=== PATIENT | female | born 1950 | race Caucasian/White ===

== ENCOUNTER 2016-03-29 23:21 | Emergency (ER) | payer OTHER ==
[~2016-03-29] VITALS: Ht 160 cm; Wt 68.0 kg
[~2016-03-29 23:21] MED LIST: HYDR-3580 PO; KETO10 PO; ULTR50TA PO
[2016-03-29 23:23] VITALS: BP 116/79; PULSE 70; RESP 16
[2016-03-29 23:24] VITALS: BP 168/79; PULSE 72; RESP 26; TEMP 98.2; O2SAT 99
[2016-03-29] MEDS ORDERED: COUGH SYRUP (23:28)
[2016-03-29 23:55] LABS: AUTOMATED NEUTROPHIL # 4.9 TH/MM3 (1.8-7.7); BASOPHIL # 0.1 TH/MM3 (0-0.2); BASOPHIL % 0.8 % (0.0-2.0); EOSINOPHIL # 0.5 TH/MM3 (0-0.4); EOSINOPHIL % 5.1 % (0.0-4.0); HEMO FLAGS DIFF FINAL; LYMPH % 32.9 % (9.0-44.0); LYMPHOCYTE # 3.2 TH/MM3 (1.0-4.8); MEAN CELL VOLUME 90.5 FL (80.0-100.0); MEAN CORPUSCULAR HEMOGLOBIN 30.2 PG (27.0-34.0); MEAN CORPUSCULAR HGB CONC 33.4 % (32.0-36.0); MONO % 10.8 % (0.0-8.0); NEUT % 50.4 % (16.0-70.0); PLATELET COUNT 187 TH/MM3 (150-450); RED BLOOD COUNT 4.08 MIL/MM3 (4.00-5.30); RED CELL DISTRIBUTION WIDTH 13.2 % (11.6-17.2); WHITE BLOOD COUNT 9.8 TH/MM3 (4.0-11.0)
--- NOTE | 2016-03-30 00:01 | RADRPT ---
EXAM DATE/TIME: 03/29/2016 23:35 [facility] COMPARISON: No previous studies available for comparison. INDICATIONS : Short of breath. MEDICAL HISTORY : None. SURGICAL HISTORY : Cholecystectomy. Spinal cord stimulator placed in 1995 ENCOUNTER: Initial ACUITY: 1 day PAIN SCORE: 10/10 LOCATION: Right lower chest area. FINDINGS: The cardiac silhouette is normal in transverse diameter. The lungs are free of acute parenchymal opac ity. No effusions are identified. Spinal stimulator is in place with its tip at the T8 level CONCLUSION: 1. No acute cardiopulmonary disease. Cj Peres MD on March 29, 2016 at 23:59 Board Certified Radiologist. This report was verified electronically.
[2016-03-30 00:09] LABS: BICARBONATE 26.7 MEQ/L (21.0-32.0); POTASSIUM 3.3 MEQ/L (3.5-5.1)
[2016-03-30 01:19] LABS: CREATINE KINASE 107 U/L (26-192)
[2016-03-30 01:32] LABS: CKMB 0.5 NG/ML (0.5-3.6)
[2016-03-30] MEDS ORDERED: SODIUM CHLORIDE 0.9% FLUSH 5 ML FLUSH IVF PRN (02:15)
[2016-03-30 02:32] VITALS: BP 141/67; PULSE 69; RESP 18; O2SAT 94
--- NOTE | 2016-03-30 02:38 | PD ---
HPI Chief Complaint: Respiratory Symptoms Time Seen by Provider: 01:56 Travel History International Travel<30 days: No Contact w/Intl Traveler<30days: No Traveled to known affect area: No History of Present Illness HPI This is a 65-year-old female who presents today with complaints of 1 week history of cough with pleuritic pain. The patient had fevers and upper respiratory symptoms earlier. She reports now the cough is productive with yellow green phlegm. There is no reported chills. She denies fever now. There are no other associated symptoms at this time. PENDING SALE TO [facility] Past Medical History Cardiovascular Problems: Yes Diminished Hearing: No Hypertension: Yes Influenza Vaccination: Yes Tubal Ligation: Yes Past Surgical History Appendectomy: Yes Hysterectomy: Yes Neurologic Surgery: Yes (back) Social History Alcohol Use: No Tobacco Use: Yes (02/13 PPD ) Substance Use: No Allergies-Medications (Allergen,Severity, Reaction): Coded Allergies: MRI PRECAUTION (Verified Allergy, Unknown, 03/29/16) Reported Meds & Prescriptions Reported Meds & Active Scripts Active Doxycycline Hyclate 100 Mg Cap 100 Mg PO BID Reported [Cough Syrup] Review of Systems Except as stated in HPI: all other systems reviewed are Neg General / Constitutional: Positive: Fever, No: Chills (earlier, none now) HENT: No: Headaches, Lightheadedness Cardiovascular: Positive: Chest Pain or Discomfort (right sided pleuritic with cough), No: Palpitations Respiratory: Positive: Cough (duct of yellow-green phlegm), No: Shortness of Breath Gastrointestinal: No: Nausea, Vomiting, Abdominal Pain Musculoskeletal: No: Myalgias, Pain Neurologic: No: Weakness, Dizziness Physical Exam Narrative GENERAL: Well-nourished, well-developed patient. SKIN: Warm and dry. HEAD: Normocephalic/atraumatic. EYES: No scleral icterus. No injection or drainage. NECK: Supple, trachea midline. CARDIOVASCULAR: Regular rate and rhythm without murmurs, gallops, or rubs. RESPIRATORY: Fine Rales heard at the right base. No rhonchi appreciated. Equal breath sounds bilaterally MUSCULOSKELETAL: No cyanosis, or edema. BACK: Nontender without obvious deformity. No CVA tenderness. NEUROLOGICAL: Awake and alert. Cranial nerves II through XII intact. Motor grossly within normal limits. Five out of 5 muscle strength in all muscle groups. Normal speech. Data Data Last Documented VS Vital Signs Date Time Temp Pulse Resp B/P Pulse Ox O2 Delivery O2 Flow Rate FiO2 03/30/16 02:32 69 18 141/67 94 Room Air 03/29/16 23:28 2 03/29/16 23:24 98.2 Orders Chest, Single Ap (03/29/16 ) Complete Blood Count With Diff (03/29/16 23:33) Basic Metabolic Panel (Bmp) (03/29/16 23:33) Influenzae A/B Antigen (03/29/16 23:33) D-Dimer (03/29/16 23:55) Ckmb (Isoenzyme) Profile (03/30/16 00:37) Troponin I (03/30/16 00:37) CKMB (03/29/16 23:36) CKMB% (03/29/16 23:36) Sodium Chloride 0.9% Flush (Ns Flush) (03/30/16 02:15) Albuterol Neb (Albuterol Neb) (03/30/16 02:15) Doxycycline (Vibramycin) (03/30/16 03:30) Labs Laboratory Tests Test 03/29/16 03/29/16 23:36 23:57 White Blood Count 9.8 TH/MM3 Red Blood Count 4.08 MIL/MM3 Hemoglobin 12.3 GM/DL Hematocrit 37.0 % Mean Corpuscular Volume 90.5 FL Mean Corpuscular Hemoglobin 30.2 PG Mean Corpuscular Hemoglobin 33.4 % Concent Red Cell Distribution Width 13.2 % Platelet Count 187 TH/MM3 Mean Platelet Volume 11.0 FL Neutrophils (%) (Auto) 50.4 % Lymphocytes (%) (Auto) 32.9 % Monocytes (%) (Auto) 10.8 % Eosinophils (%) (Auto) 5.1 % Basophils (%) (Auto) 0.8 % Neutrophils # (Auto) 4.9 TH/MM3 Lymphocytes # (Auto) 3.2 TH/MM3 Monocytes # (Auto) 1.1 TH/MM3 Eosinophils # (Auto) 0.5 TH/MM3 Basophils # (Auto) 0.1 TH/MM3 CBC Comment DIFF FINAL Differential Comment Sodium Level 142 MEQ/L Potassium Level 3.3 MEQ/L Chloride Level 109 MEQ/L Carbon Dioxide Level 26.7 MEQ/L Anion Gap 6 MEQ/L Blood Urea Nitrogen 10 MG/DL Creatinine 0.76 MG/DL Estimat Glomerular Filtration 77 ML/MIN Rate Random Glucose 112 MG/DL Calcium Level 8.2 MG/DL Total Creatine Kinase 107 U/L Creatine Kinase MB 0.5 NG/ML Troponin I LESS THAN 0.02 NG/ML D-Dimer Quantitative (PE/DVT) 0.37 MG/L [facility] Medical Decision Making Medical Screen Exam Complete: Yes Emergency Medical Condition: Yes Differential Diagnosis Bronchitis versus pneumonia versus pulmonary embolism Narrative Course 65-year-old female presents with complaints of cough with productive yellow phlegm green. The patient had fever earlier this week but is afebrile now. The patient's exam shows fine crackles at the right base. That is where she has pleuritic discomfort. Despite chest x-ray being read as negative I believe she very may well have early pneumonia. White blood cell count is within normal limits. D-dimer is negative. She's been given nebulizer treatment here in the emergency department. She's feels better. She does have cough syrup with codeine at home. I've instructed she can take the cough syrup up to every 4 hours but if she can stretch at 6-8 that is preferred. She's been given her first dose of doxycycline here in the emergency department. She is instructed to follow up with her primary care physician. She also instructed return if she does any worsening symptoms i.e. return if fever, worsening shortness of breath, or any other reason that concerned her. Diagnosis Primary Impression: Pneumonia Scripts Doxycycline Hyclate 100 Mg [id number] Mg PO BID #20 CAP Ref 0 Prov:Bin Webb MD 03/30/16 Disposition: 01 DISCHARGE HOME Condition: Stable Bin Webb MD Mar 30, 2016 02:38
[2016-03-30] MEDS: RESP: ALBUTEROL 2.5 MG/3 ML NEB (SCH) INH ×2 (03:01→03:02)
[2016-03-30] MEDS ORDERED: DOXYCYCLINE HYCLATE 100 MG CAP PO ONE (03:30)
[2016-03-30] MEDS ORDERED: DOXY100C PO (03:45)
== END 2016-03-30 04:13 | disposition home or self-care (01) ==
LOC: NEPE 23:21
DX: J18.9 Pneumonia, unspecified organism (principal); I10 Essential (primary) hypertension; F17.210 Nicotine dependence, cigarettes, uncomplicated
CPT/HCPCS: 71010; 80048; 82550; 82552; 84484; 85025; 85379; 87804; 94640; 94664; 99284; J7613

== ENCOUNTER 2016-06-05 09:38 | Emergency (ER) | payer OTHER ==
[~2016-06-05] VITALS: Ht 160 cm; Wt 63.5 kg
[~2016-06-05 09:38] MED LIST changes: +COUGH SYRUP; +DOXY100C PO; -HYDR-3580 PO; -KETO10 PO; -ULTR50TA PO
[2016-06-05 09:41] VITALS: BP 197/99; PULSE 71; RESP 18; TEMP 98; O2SAT 96
[2016-06-05] MEDS ORDERED: ASPI81CH CHEW (10:02)
[2016-06-05] MEDS ORDERED: ATEN25TA PO (10:02)
[2016-06-05 10:04] VITALS: BP 173/77; PULSE 64; RESP 16; O2SAT 97
--- NOTE | 2016-06-05 10:04 | PD ---
HPI Chief Complaint: Eye Problems/Injury Time Seen by Provider: 09:48 Travel History International Travel<30 days: No Contact w/Intl Traveler<30days: No Traveled to known affect area: No History of Present Illness HPI The patient is a 65-year-old female who presents to the emergency department for visual changes of the right eye. The patient states approximately 10 minutes prior to arrival she developed visual changes out of the right eye. The patient states she has difficulty seeing the right upper quadrant out of the right eye. She states that it feels like she is looking through a "kaleidoscope", feels like there is a silver current the right upper quadrant. The patient denies any pain out of the right eye, denies any known history of retinal detachment, glaucoma, or trauma to the right eye. The patient does have a history of hypertension, takes atenolol and a baby aspirin daily, but denies any history of CVA or TIA. The patient states her symptoms started 10 minutes prior to arrival, only affect the right eye, however, she is anxious secondary to her current symptoms. The patient does wear glasses. PFSH Past Medical History Cardiovascular Problems: Yes Diminished Hearing: No Hypertension: Yes Influenza Vaccination: Yes Tubal Ligation: Yes Past Surgical History Appendectomy: Yes Cholecystectomy: Yes (03/2015) Hysterectomy: Yes Neurologic Surgery: Yes (back) Social History Alcohol Use: No Tobacco Use: Yes (1/3 OF A PACK PER DAY) Substance Use: No Allergies-Medications (Allergen,Severity, Reaction): Coded Allergies: MRI PRECAUTION (Verified Allergy, Unknown, 06/05/16) Reported Meds & Prescriptions Reported Meds & Active Scripts Active Reported Aspirin 81 Mg Chew 81 Mg CHEW ONCE Atenolol 25 Mg Tab 25 Mg PO DAILY Review of Systems Except as stated in HPI: all other systems reviewed are Neg Eyes: Positive: Visual changes, No: Photophobia, Redness, Pain HENT: No: Headaches, Neck Pain Cardiovascular: No: Chest Pain or Discomfort Respiratory: No: Shortness of Breath Gastrointestinal: No: Nausea, Vomiting Neurologic: No: Focal Abnormalities, Headache, Paresthesia, Sensory Disturbance Physical Exam Narrative GENERAL: Awake, alert, pleasant 65-year-old female who appears her stated age and is in no acute respiratory distress. She is mildly anxious. SKIN: Focused skin assessment warm/dry. HEAD: Atraumatic. Normocephalic. EYES: Pupils equal and round. Pupils are 3 mm bilateral and reactive. EOMs are intact. Confrontational eye xavier on the left within normal limits. On the right appear to be diminished in the right temporal area, right upper quadrant. Snellen eye chart vision is 20/40 bilaterally. ENT: No nasal bleeding or discharge. Mucous membranes pink and moist. NECK: Trachea midline. No JVD. CARDIOVASCULAR: Regular rate and rhythm. No murmur appreciated. RESPIRATORY: No accessory muscle use. Clear to auscultation. Breath sounds equal bilaterally. GASTROINTESTINAL: Abdomen soft, non-tender, nondistended. MUSCULOSKELETAL: No obvious deformities. No clubbing. No cyanosis. No edema. NEUROLOGICAL: Awake and alert. No obvious cranial nerve deficits. Motor grossly within normal limits. Normal speech. Nonfocal. Oriented 4. No drift of the upper or lower extremities. Sensation is symmetric on the arms, face, and legs bilaterally. PSYCHIATRIC: Appropriate mood and affect; insight and judgment normal. Data Data Last Documented VS Vital Signs Date Time Temp Pulse Resp B/P Pulse Ox O2 Delivery O2 Flow Rate FiO2 06/05/16 10:04 64 16 173/77 97 Room Air 06/05/16 09:41 98.0 Orders Complete Blood Count With Diff (06/05/16 10:00) Basic Metabolic Panel (Bmp) (06/05/16 10:00) Act Partial Throm Time (Ptt) (06/05/16 10:00) Prothrombin Time / Inr (Pt) (06/05/16 10:00) Ct Brain W/O Iv Contrast(Rout) (06/05/16 ) Enalaprilat Inj (Vasotec Inj) (06/05/16 10:15) Labs Laboratory Tests Test 06/05/16 10:08 White Blood Count 9.5 TH/MM3 Red Blood Count 4.90 MIL/MM3 Hemoglobin 14.4 GM/DL Hematocrit 44.4 % Mean Corpuscular Volume 90.8 FL Mean Corpuscular Hemoglobin 29.4 PG Mean Corpuscular Hemoglobin 32.3 % Concent Red Cell Distribution Width 13.5 % Platelet Count 242 TH/MM3 Mean Platelet Volume 10.7 FL Neutrophils (%) (Auto) 62.7 % Lymphocytes (%) (Auto) 28.2 % Monocytes (%) (Auto) 6.0 % Eosinophils (%) (Auto) 1.9 % Basophils (%) (Auto) 1.2 % Neutrophils # (Auto) 6.0 TH/MM3 Lymphocytes # (Auto) 2.7 TH/MM3 Monocytes # (Auto) 0.6 TH/MM3 Eosinophils # (Auto) 0.2 TH/MM3 Basophils # (Auto) 0.1 TH/MM3 CBC Comment DIFF FINAL Differential Comment Prothrombin Time 10.6 SEC Prothromb Time International 1.0 RATIO Ratio Activated Partial 27.5 SEC Thromboplast Time Sodium Level 140 MEQ/L Potassium Level 3.6 MEQ/L Chloride Level 106 MEQ/L Carbon Dioxide Level 26.2 MEQ/L Anion Gap 8 MEQ/L Blood Urea Nitrogen 12 MG/DL Creatinine 1.14 MG/DL Estimat Glomerular Filtration 48 ML/MIN Rate Random Glucose 122 MG/DL Calcium Level 9.6 MG/DL [facility] Medical Decision Making Medical Screen Exam Complete: Yes Emergency Medical Condition: Yes Medical Record Reviewed: Yes Interpretation(s) Laboratory Tests Test 06/05/16 10:08 White Blood Count 9.5 TH/MM3 Red Blood Count 4.90 MIL/MM3 Hemoglobin 14.4 GM/DL Hematocrit 44.4 % Mean Corpuscular Volume 90.8 FL Mean Corpuscular Hemoglobin 29.4 PG Mean Corpuscular Hemoglobin 32.3 % Concent Red Cell Distribution Width 13.5 % Platelet Count 242 TH/MM3 Mean Platelet Volume 10.7 FL Neutrophils (%) (Auto) 62.7 % Lymphocytes (%) (Auto) 28.2 % Monocytes (%) (Auto) 6.0 % Eosinophils (%) (Auto) 1.9 % Basophils (%) (Auto) 1.2 % Neutrophils # (Auto) 6.0 TH/MM3 Lymphocytes # (Auto) 2.7 TH/MM3 Monocytes # (Auto) 0.6 TH/MM3 Eosinophils # (Auto) 0.2 TH/MM3 Basophils # (Auto) 0.1 TH/MM3 CBC Comment DIFF FINAL Differential Comment Prothrombin Time 10.6 SEC Prothromb Time International 1.0 RATIO Ratio Activated Partial 27.5 SEC Thromboplast Time Sodium Level 140 MEQ/L Potassium Level 3.6 MEQ/L Chloride Level 106 MEQ/L Carbon Dioxide Level 26.2 MEQ/L Anion Gap 8 MEQ/L Blood Urea Nitrogen 12 MG/DL Creatinine 1.14 MG/DL Estimat Glomerular Filtration 48 ML/MIN Rate Random Glucose 122 MG/DL Calcium Level 9.6 MG/DL Last Impressions Head CT 06/05/16 0000 Signed Impressions: Service Date/Time: Sunday, June 05, 2016 10:33 - CONCLUSION: Unremarkable noncontrast CT. Black Bo MD Differential Diagnosis Differential diagnosis includes retinal detachment, floaters, ran artery occlusion, retinal vein occlusion, amaurosis fugax, ocular migraine. Narrative Course IV was established, labs are drawn and sent, and the patient was placed on cardiac telemetry monitoring and continuous pulse oximetry monitoring. Still an eye chart was performed, patient's vision bilateral 20/40, however, she appears to have diminished right upper quadrant visual xavier on confrontational exam. Patient may have artery/vein occlusion versus retinal detachment. Less likely would be amaurosis. CT of the brain was obtained. CT the brain was negative. Laboratory evaluation reveals mildly elevated creatinine 1.14, otherwise unremarkable. The patient was reevaluated at 10:56 AM. The patient states her symptoms have resolved. I discussed the patient with the cath lab nurse, Dr. Price, who will see her in the office today after 3 PM. The patient is comfortable with this plan of care and disposition. Diagnosis Primary Impression: Transient visual loss of right eye Referrals: Winifred Price MD 1 day Follow-up with Dr. Price in the office today at 3 PM Additional Instructions: Follow-up with Dr. Price in the office today at 3 PM. Return if symptoms worsen or progress. Med/Other Pt SpecificInfo: No Change to Meds Disposition: 01 DISCHARGE HOME Condition: Stable Miguel Fraire MD Jun 05, 2016 10:04
[2016-06-05] MEDS ORDERED: ENALAPRILAT 2.5 MG/2 ML VIAL IV PUSH ONE (10:15)
[2016-06-05 10:21] LABS: BASOPHIL # 0.1 TH/MM3 (0-0.2); BASOPHIL % 1.2 % (0.0-2.0); EOSINOPHIL # 0.2 TH/MM3 (0-0.4); EOSINOPHIL % 1.9 % (0.0-4.0); HEMATOCRIT 44.4 % (35.0-46.0); HEMO FLAGS DIFF FINAL; LYMPH % 28.2 % (9.0-44.0); LYMPHOCYTE # 2.7 TH/MM3 (1.0-4.8); MEAN CELL VOLUME 90.8 FL (80.0-100.0); MEAN CORPUSCULAR HEMOGLOBIN 29.4 PG (27.0-34.0); MEAN CORPUSCULAR HGB CONC 32.3 % (32.0-36.0); NEUT % 62.7 % (16.0-70.0); PLATELET COUNT 242 TH/MM3 (150-450); RED CELL DISTRIBUTION WIDTH 13.5 % (11.6-17.2); WHITE BLOOD COUNT 9.5 TH/MM3 (4.0-11.0)
[2016-06-05 10:32] LABS: APTT (PATIENT) 27.5 SEC (24.3-30.1); PROTHROMBIN TIME - PATIENT 10.6 SEC (9.8-11.6)
[2016-06-05 10:35] LABS: BICARBONATE 26.2 MEQ/L (21.0-32.0)
--- NOTE | 2016-06-05 10:46 | RADRPT ---
EXAM DATE/TIME: 06/05/2016 10:33 [facility] COMPARISON: No previous studies available for comparison. INDICATIONS : Visual disturbance right eye upon standing RADIATION DOSE: 39.21 CTDIvol (mGy) MEDICAL HISTORY : Hypertension. Cardiovascular disease SURGICAL HISTORY : Cholecystectomy. Hysterectomy. Appendectomy. ENCOUNTER: Initial ACUITY: 1 day PAIN SCALE: 0/10 LOCATION: cranial TECHNIQUE: Multiple contiguous axial images were obtained of the head. Using automated exposure control and adj ustment of the mA and/or kV according to patient size, radiation dose was kept as low as reasonably a chievable to obtain optimal diagnostic quality images. FINDINGS: CEREBRUM: The ventricles are normal for age. No evidence of midline shift, mass lesion, hemorrhage or acute in farction. No extra-axial fluid collections are seen. POSTERIOR FOSSA: The cerebellum and brainstem are intact. The 4th ventricle is midline. The cerebellopontine angle i s unremarkable. EXTRACRANIAL: The visualized portion of the orbits is intact. SKULL: The calvaria is intact. No evidence of skull fracture. CONCLUSION: Unremarkable noncontrast CT. Black Bo MD on June 05, 2016 at 10:43 Board Certified Radiologist. This report was verified electronically.
[2016-06-05 10:54] LABS: POTASSIUM 3.6 MEQ/L (3.5-5.1)
== END 2016-06-05 11:42 | disposition home or self-care (01) ==
LOC: NEPC 09:38
DX: H53.121 Transient visual loss, right eye (principal); I10 Essential (primary) hypertension
CPT/HCPCS: 70450; 80048; 85025; 85610; 85730

== ENCOUNTER 2017-02-05 09:22 | Emergency (ER) | payer OTHER ==
[~2017-02-05] VITALS: Ht 160 cm; Wt 73.0 kg
[~2017-02-05 09:22] MED LIST changes: +ASPI-516 CHEW; +ATEN25TA PO; -COUGH SYRUP; -DOXY100C PO
[2017-02-05 09:24] VITALS: BP 228/125; PULSE 72; RESP 14
[2017-02-05 09:43] VITALS: BP 209/86; PULSE 62; RESP 16; TEMP 98; O2SAT 98
[2017-02-05] MEDS ORDERED: KETOROLAC TROMETHAMINE 30 MG/ML (IVP) VIAL IV PUSH ONE (09:45)
[2017-02-05] MEDS ORDERED: DIAZEPAM 5 MG TAB PO ONE (09:45)
[2017-02-05 10:01] LABS: AUTOMATED NEUTROPHIL # 6.8 TH/MM3 (1.8-7.7); BASOPHIL % 0.4 % (0.0-2.0); EOSINOPHIL # 1.1 TH/MM3 (0-0.4); EOSINOPHIL % 9.7 % (0.0-4.0); HEMATOCRIT 40.4 % (35.0-46.0); HEMOGLOBIN 13.9 GM/DL (11.6-15.3); LYMPH % 26.2 % (9.0-44.0); LYMPHOCYTE # 3.1 TH/MM3 (1.0-4.8); MEAN CELL VOLUME 91.5 FL (80.0-100.0); MEAN CORPUSCULAR HEMOGLOBIN 31.4 PG (27.0-34.0); MEAN CORPUSCULAR HGB CONC 34.3 % (32.0-36.0); MEAN PLATELET VOLUME 10.8 FL (7.0-11.0); MONO % 6.4 % (0.0-8.0); MONOCYTE # 0.8 TH/MM3 (0-0.9); NEUT % 57.3 % (16.0-70.0); PLATELET COUNT 274 TH/MM3 (150-450); RED BLOOD COUNT 4.42 MIL/MM3 (4.00-5.30); WHITE BLOOD COUNT 11.8 TH/MM3 (4.0-11.0)
[2017-02-05 10:15] LABS: ALT (GPT) 24 U/L (10-53); AST (GOT) 15 U/L (15-37); BICARBONATE 25.3 MEQ/L (21.0-32.0); BLOOD UREA NITROGEN 19 MG/DL (7-18); CALCIUM 9.1 MG/DL (8.5-10.1); CHLORIDE 107 MEQ/L (98-107); CREATININE 1.02 MG/DL (0.50-1.00); GLOMERULAR FILTRATION RATE 55 ML/MIN (>89); GLUCOSE,RANDOM 115 MG/DL (74-106); SODIUM (NA) 139 MEQ/L (136-145)
--- NOTE | 2017-02-05 10:17 | RADRPT ---
EXAM DATE/TIME: 02/05/2017 10:05 [facility] COMPARISON: CHEST SINGLE AP, March 29, 2016, 23:35. INDICATIONS : Chest pain and shortness of breath. MEDICAL HISTORY : None. SURGICAL HISTORY : Cholecystectomy. Spinal cord stimulator placed in 1995 ENCOUNTER: Initial ACUITY: 3 days PAIN SCORE: 7/10 LOCATION: Bilateral chest FINDINGS: A single view of the chest demonstrates the lungs to be symmetrically aerated without evidence of mas s, infiltrate or effusion. The cardiomediastinal contours are unremarkable. Spinal stimulator [employer] us structures are intact. CONCLUSION: Spinal stimulator otherwise negative. Grant Sal MD FACR on February 05, 2017 at 10:14 Board Certified Radiologist. This report was verified electronically.
[2017-02-05 10:18] LABS: ALKALINE PHOSPHATASE 68 U/L (45-117); TOTAL BILIRUBIN ADULT 0.3 MG/DL (0.2-1.0); TOTAL PROTEIN 7.7 GM/DL (6.4-8.2); TROPONIN I LESS THAN 0.02 NG/ML (0.02-0.05)
[2017-02-05] MEDS ORDERED: CYCLOBENZAPRINE HCL 10 MG TAB PO ONE (11:00)
[2017-02-05 11:04] VITALS: BP 158/73; PULSE 56; RESP 17; O2SAT 98
[2017-02-05 11:16] VITALS: RESP 17
[2017-02-05] MEDS ORDERED: CYCL10TA PO (11:22)
--- NOTE | 2017-02-05 11:22 | PD ---
HPI Chief Complaint: Chest Pain Time Seen by Provider: 09:27 Travel History International Travel<30 days: No Contact w/Intl Traveler<30days: No Traveled to known affect area: No History of Present Illness HPI Patient is a 66-year-old female who comes in complaining of right shoulder pain and pain that goes down her right arm. She just been having the pain for the past 3 days, but today it got worse while she was here at work, cleaning. She denies having any chest pain. She says that she has a chronic issue with palpitations and shortness of breath, this has not changed. She follows with her doctor, Dr. Chen for this. She denies fever or chills. She denies any injuries. She has been taking Aleve for her symptoms, but it is not helping. [facility] Past Medical History Cardiovascular Problems: Yes Diabetes: Yes (Diet Controlled ) Patient Takes Glucophage: No Diminished Hearing: No Hypertension: Yes ?: Not Ovarian Cysts: Yes Tubal Ligation: Yes Past Surgical History Appendectomy: Yes Cholecystectomy: Yes (03/2015) Gynecologic Surgery: Yes (TUBELECTOMY) Hysterectomy: Yes Neurologic Surgery: Yes (back) Other Surgery: Yes (BACK SURGERY) Social History Alcohol Use: No Tobacco Use: Yes (1/3 OF A PACK PER DAY) Substance Use: No Allergies-Medications (Allergen,Severity, Reaction): Coded Allergies: MRI PRECAUTION (Verified Allergy, Unknown, 02/05/17) Reported Meds & Prescriptions Reported Meds & Active Scripts Active Flexeril (Cyclobenzaprine HCl) 10 Mg Tab 10 Mg PO TID Reported Aspirin 81 Mg Chew 81 Mg CHEW ONCE Atenolol 25 Mg Tab 25 Mg PO DAILY Review of Systems Except as stated in HPI: all other systems reviewed are Neg General / Constitutional: No: Fever, Chills HENT: No: Headaches Cardiovascular: No: Chest Pain or Discomfort Respiratory: No: Cough Gastrointestinal: No: Nausea, Vomiting Genitourinary: No: Dysuria Musculoskeletal: Positive: Myalgias, Pain Skin: No Rash Neurologic: No: Weakness, Dizziness Physical Exam Narrative GENERAL: Awake and alert, in no acute distress. SKIN: Focused skin assessment warm/dry. HEAD: Atraumatic. Normocephalic. EYES: Pupils equal and round. No scleral icterus. EOMI. ENT: Mucous membranes pink and moist. NECK: Trachea midline. No JVD. Tender to palpation of the right trapezius muscle. CARDIOVASCULAR: Regular rate and rhythm. No murmur appreciated. RESPIRATORY: No accessory muscle use. Clear to auscultation. Breath sounds equal bilaterally. MUSCULOSKELETAL: No obvious deformities. No clubbing. No cyanosis. No edema. NEUROLOGICAL: Awake and alert. No obvious cranial nerve deficits. Motor grossly within normal limits. Normal speech. PSYCHIATRIC: Appropriate mood and affect; insight and judgment normal. Data Data Last Documented VS Vital Signs Date Time Temp Pulse Resp B/P (MAP) Pulse Ox O2 Delivery O2 Flow Rate FiO2 02/05/17 12:17 02/05/17 11:16 17 02/05/17 11:04 56 98 Room Air 02/05/17 09:43 98.0 Orders Orders Iv Access Insert/Monitor (02/05/17 09:33) Complete Blood Count With Diff (02/05/17 09:33) Comprehensive Metabolic Panel (02/05/17 09:33) Troponin I (02/05/17 09:33) Chest, Single Ap (02/05/17 ) Diazepam (Valium) (02/05/17 09:45) Ketorolac Inj (Toradol Inj) (02/05/17 09:45) Cyclobenzaprine (Flexeril) (02/05/17 11:00) Ed Discharge Order (02/05/17 11:22) Electrocardiogram (02/05/17 09:26) Labs Laboratory Tests Test 02/05/17 09:30 White Blood Count 11.8 TH/MM3 Red Blood Count 4.42 MIL/MM3 Hemoglobin 13.9 GM/DL Hematocrit 40.4 % Mean Corpuscular Volume 91.5 FL Mean Corpuscular Hemoglobin 31.4 PG Mean Corpuscular Hemoglobin Concent 34.3 % Red Cell Distribution Width 13.0 % Platelet Count 274 TH/MM3 Mean Platelet Volume 10.8 FL Neutrophils (%) (Auto) 57.3 % Lymphocytes (%) (Auto) 26.2 % Monocytes (%) (Auto) 6.4 % Eosinophils (%) (Auto) 9.7 % Basophils (%) (Auto) 0.4 % Neutrophils # (Auto) 6.8 TH/MM3 Lymphocytes # (Auto) 3.1 TH/MM3 Monocytes # (Auto) 0.8 TH/MM3 Eosinophils # (Auto) 1.1 TH/MM3 Basophils # (Auto) 0.0 TH/MM3 CBC Comment DIFF FINAL Differential Comment Blood Urea Nitrogen 19 MG/DL Creatinine 1.02 MG/DL Random Glucose 115 MG/DL Total Protein 7.7 GM/DL Albumin 4.0 GM/DL Calcium Level 9.1 MG/DL Alkaline Phosphatase 68 U/L Aspartate Amino Transf (AST/SGOT) 15 U/L Alanine Aminotransferase (ALT/SGPT) 24 U/L Total Bilirubin 0.3 MG/DL Sodium Level 139 MEQ/L Potassium Level 4.0 MEQ/L Chloride Level 107 MEQ/L Carbon Dioxide Level 25.3 MEQ/L Anion Gap 7 MEQ/L Estimat Glomerular Filtration Rate 55 ML/MIN Troponin I LESS THAN 0.02 NG/ML MDM Medical Decision Making Medical Screen Exam Complete: Yes Emergency Medical Condition: Yes Medical Record Reviewed: Yes Interpretation(s) ECG shows NSR at 71, no ST elevation or depression Differential Diagnosis muscle spasm vs nerve impingement vs sprain Narrative Course Patient is a 66 year old female who comes in complaining of right shoulder pain. Exam shows tenderness to the right trapezius muscle. IV established, labs sent. Labs show no acute abnormalities. CXR performed shows no acute abnormalities. Given Diazepam and Toradol with improvement of her symptoms. She says her pain is still a 5/10, but more tolerable. Given Flexeril. Offered admission to chest pain center, but this is likely a musculoskeletal pain to her right shoulder, and she never truly had chest pain. She would prefer to go home. Given a prescription for Flexeril. She will follow up with her doctor, Dr. Chen tomorrow. Advised to return at any time for any worsening symptoms. Diagnosis Primary Impression: Muscle spasm Patient Instructions: General Instructions, Muscle Spasm (ED) Additional Instructions: Follow up with your doctor. Take pain medicine as needed. Return to the ED as needed for any worsening symptoms. Scripts Cyclobenzaprine (Flexeril) 10 Mg Tab 10 MG PO TID for Muscle Spasm, #15 TAB 0 Refills Prov: Robyn Heard MD 02/05/17 Disposition: 01 DISCHARGE HOME Condition: Stable Robyn Heard MD Feb 05, 2017 11:22
--- NOTE | 2017-02-06 17:42 | EKG ---
Date Performed: 02/05/2017 Time Performed: 09:26:18 PTAGE: 66 years EKG: Sinus rhythm MODERATE ST DEPRESSION Since previous tracing, no significant change noted ABNORMAL ECG PREVIOUS TRACING : 04/02/2015 13.53.57 DOCTOR: Rosa Joseph Interpretating Date/Time 02/06/2017 17:40:04
== END 2017-02-05 12:18 | disposition home or self-care (01) ==
LOC: NEPE 09:22
DX: M62.838 Other muscle spasm (principal); E11.9 Type 2 diabetes mellitus without complications; I10 Essential (primary) hypertension; N83.209 Unspecified ovarian cyst, unspecified side; R94.31 Abnormal electrocardiogram [ECG] [EKG]; F17.200 Nicotine dependence, unspecified, uncomplicated
CPT/HCPCS: 71010; 80053; 84484; 85025; 93005; 96374; 99285; J1885

== ENCOUNTER 2017-02-12 11:30 | Emergency (ER) | payer OTHER ==
[~2017-02-12] VITALS: Ht 160 cm; Wt 75.0 kg
[~2017-02-12 11:30] MED LIST changes: +CYCL10TA PO
[2017-02-12 11:35] VITALS: BP 198/90; PULSE 71; RESP 17; O2SAT 96
[2017-02-12 11:49] VITALS: TEMP 97.9
--- NOTE | 2017-02-12 12:11 | PD ---
HPI Chief Complaint: Musculoskeletal Complaint Time Seen by Provider: 11:35 Travel History International Travel<30 days: No Contact w/Intl Traveler<30days: No Traveled to known affect area: No History of Present Illness HPI 66 year old female presents to the emergency department for evaluation of right arm pain. Patient was evaluated at our facility on February 05 for the same complaint. A cardiac workup was performed and everything was negative. Patient was discharged home with Flexeril. Patient called her PCP, Dr. Chen and got an appointment for February 20. Patient was working today when the pain was shooting down her right arm from her right trapezius making it difficult for her to perform her job. The pain starts at the right lateral aspect of her neck and right trapezius and radiates down her right arm and a sharp shooting fashion. The patient rates the pain at a 4 out of 10 chronically but increases to an 8 out of 10 when the sharp shooting sensation occurs. Patient has full range of motion of bilateral upper extremities. Equal inspector tester sorter strengths. Patient has history of diabetes and has diabetic neuropathy in bilateral feet. He denies any fever, chills, malaise, chest pain, shortness breath, nausea, vomiting, diarrhea, abdominal pain, lightheadedness. Patient smokes half pack cigarettes a day. PFSH Past Medical History Cardiovascular Problems: Yes Chest Pain: No (fluttering at times with SOB) Diabetes: Yes (Diet Controlled ) Patient Takes Glucophage: No Diminished Hearing: No GERD: Yes Hypertension: Yes Musculoskeletal: Yes (many back surgeries; has an implanted tens unit) Ovarian Cysts: Yes Tubal Ligation: Yes Past Surgical History Appendectomy: Yes Cholecystectomy: Yes (03/2015) Gynecologic Surgery: Yes (TUBELECTOMY) Hysterectomy: Yes Neurologic Surgery: Yes (back) Other Surgery: Yes (BACK SURGERY) Social History Alcohol Use: No Tobacco Use: Yes (1/3 OF A PACK PER DAY) Substance Use: No Allergies-Medications (Allergen,Severity, Reaction): Coded Allergies: MRI PRECAUTION (Verified Allergy, Unknown, 02/12/17) Reported Meds & Prescriptions Reported Meds & Active Scripts Active Tramadol (Tramadol HCl) 50 Mg Tab 50 Mg PO Q6H PRN Robaxin (Methocarbamol) 500 Mg Tab 500 Mg PO TID PRN Prednisone (48) 10 mg tab Dose Pack (Prednisone) 10 Mg Dspk 10 Mg PO DIRECTED Flexeril (Cyclobenzaprine HCl) 10 Mg Tab 10 Mg PO TID Reported Aspirin 81 Mg Chew 81 Mg CHEW ONCE Atenolol 25 Mg Tab 25 Mg PO DAILY Review of Systems Except as stated in HPI: all other systems reviewed are Neg Physical Exam Narrative GENERAL: Well-nourished, well-developed 66-year-old female in no acute distress. Nontoxic appearing. SKIN: Focused skin assessment warm/dry. HEAD: Atraumatic. Normocephalic. EYES: Pupils equal and round. No scleral icterus. No injection or drainage. ENT: No nasal bleeding or discharge. Mucous membranes pink and moist. NECK: Trachea midline. No JVD. CARDIOVASCULAR: Regular rate and rhythm. No murmur appreciated. Radial pulses +2 bilaterally. RESPIRATORY: No accessory muscle use. Clear to auscultation. Breath sounds equal bilaterally. GASTROINTESTINAL: Abdomen soft, non-tender, nondistended. Hepatic and splenic margins not palpable. MUSCULOSKELETAL: Full range of motion bilateral upper extremities. No obvious deformities. No clubbing. No cyanosis. No edema. NEUROLOGICAL: Awake and alert. No obvious cranial nerve deficits. Motor grossly within normal limits. Normal speech. PSYCHIATRIC: Appropriate mood and affect; insight and judgment normal. Data Data Last Documented VS Vital Signs Date Time Temp Pulse Resp B/P (MAP) Pulse Ox O2 Delivery O2 Flow Rate FiO2 02/12/17 15:40 02/12/17 15:39 78 02/12/17 11:49 97.9 02/12/17 11:[address] Cerv Spine W/O Contrast (02/12/17 11:47) Electrocardiogram (02/12/17 11:52) Ketorolac Inj (Toradol Inj) (02/12/17 13:15) Orphenadrine Sr (Norflex Cr) (02/12/17 13:15) Ed Discharge Order (02/12/17 15:13) MDM Medical Decision Making Medical Screen Exam Complete: Yes Emergency Medical Condition: Yes Differential Diagnosis Differential diagnoses include but not limited to cervical radiculopathy, muscular strain, nerve impingement, herniated cervical disc Narrative Course EKG ordered and interpreted. EKG shows sinus rhythm with heart rate 72, moderate ST depression. Similar to the EKG tracing performed on February 05. Cervical CT ordered due to pt's inability to receive an MRI. 30mg Toradol IV and 100mg Norflex PO given. Patient reports significant decrease in pain at 2/ [address] shows degenerative change and bilateral neural foramina narrowing at the C5-C6. Patient is discharged home with prednisone pack, Robaxin and tramadol and instructions to follow up with neurosurgery or return to the emergency Department with any worsening condition. Last Impressions Cervical Spine CT 02/12/17 1147 Signed Impressions: Service Date/Time: Sunday, February 12, 2017 14:12 - CONCLUSION: Degenerative change as described above. There is neural foramina narrowing at the C5-C6 levels bilaterally. Mason Horne MD Diagnosis Primary Impression: Right arm pain Referrals: Lewis Emery MD Patient Instructions: Cervical Radiculopathy (GEN), General Instructions Departure Forms: Tests/Procedures, Work Release Enter return to work date: Feb 15, 2017 Additional Instructions: Please return to emergency department if your symptoms return or worsen. Follow up with your primary care provider. Follow-up with neurosurgeon. May benefit from physical therapy. Take medications as prescribed. Med/Other Pt SpecificInfo: Prescription(s) given Scripts Tramadol (Tramadol) 50 Mg Tab 50 MG PO Q6H Y for PAIN, #10 TAB 0 Refills Prov: Miguel Fraire MD 02/12/17 Methocarbamol (Robaxin) 500 Mg Tab 500 MG PO TID Y for MUSCLE SPASM, #10 TAB 0 Refills Prov: Robyn Scanlon 02/12/17 Prednisone (48) 10 mg tab Dose Pack (Prednisone (48) 10 mg tab Dose Pack) 10 Mg Dspk 10 MG PO DIRECTED for Inflammation, #1 DSPK 0 Refills Prov: Robyn Scanlon 02/12/17 Disposition: 01 DISCHARGE HOME Condition: Stable Robyn Scanlon Feb 12, 2017 12:11
[2017-02-12] MEDS ORDERED: ORPHENADRINE CITRATE 100 MG SUSTAINED RELEASE TAB PO ONE (13:15)
[2017-02-12] MEDS ORDERED: KETOROLAC TROMETHAMINE 30 MG/ML (IVP) VIAL IV PUSH ONE (13:15)
--- NOTE | 2017-02-12 15:01 | RADRPT ---
EXAM DATE/TIME: 02/12/2017 14:12 [facility] COMPARISON: No previous studies available for comparison. INDICATIONS : Right side neck pain that radiates down right arm. RADIATION DOSE: 22.00 CTDIvol (mGy) MEDICAL HISTORY : Cardiovascular disease. Hypertension. Diabetes mellitus type 2. SURGICAL HISTORY : Appendectomy. Cholecystectomy.Hysterectomy.Spinal stimulator. ENCOUNTER: Initial ACUITY: 1 day PAIN SCALE: 8/10 LOCATION: Right neck TECHNIQUE: Volumetric scanning of the cervical spine was performed. Multiplanar reconstructions in the sagittal, coronal and oblique axial planes were performed. Using automated exposure control and adjustment o f the mA and/or kV according to patient size, radiation dose was kept as low as reasonably achievable to obtain optimal diagnostic quality images. DICOM format image data is available electronically f or review and comparison. FINDINGS: VERTEBRAE: Normal vertebral body height. ALIGNMENT: There is 1-2 mm of anterior subluxation of C3 on C4. C2-C3: The bony spinal canal is normal in size. No evidence of disc bulge or herniation. The neural forami na are bilaterally patent. C3-C4: Again noted is the minimal anterior subluxation. There is mild facet hypertrophy. The bony spinal can al is normal in size. No evidence of disc bulge or herniation. The neural foramina are bilaterally patent. C4-C5: The bony spinal canal is normal in size. No evidence of disc bulge or herniation. The neural forami na are bilaterally patent. There is minimal facet hypertrophy. C5-C6: The disc demonstrates decreased height. There is mild posterior osteophytic ridging. There is anterio r osteophytic ridging. There is uncovertebral hypertrophy. There is narrowing of the neural foramina bilaterally. C6-C7: There is minimal bulge without significant stenosis. There is minimal anterior and posterior osteophy tic ridging. The bony spinal canal is normal in size. The neural foramina are bilaterally patent. C7-T1: The bony spinal canal is normal in size. No evidence of disc bulge or herniation. The neural forami na are bilaterally patent. CONCLUSION: Degenerative change as described above. There is neural foramina narrowing at the C5-C6 levels macario porter. Mason Horne MD on February 12, 2017 at 14:52 Board Certified Radiologist. This report was verified electronically.
[2017-02-12] MEDS ORDERED: PRED10PA2 PO (15:12)
[2017-02-12] MEDS ORDERED: ROBA500T PO (15:12)
[2017-02-12] MEDS ORDERED: TRAM50TA PO (15:13)
[2017-02-12 15:39] VITALS: BP 158/73; PULSE 78
--- NOTE | 2017-02-13 17:53 | EKG ---
Date Performed: 02/12/2017 Time Performed: 11:35:53 PTAGE: 66 years EKG: Sinus rhythm MODERATE ST DEPRESSION ABNORMAL ECG INTERPRETATION BASED ON A DEFAULT AGE OF 40 YEARS PREVIOUS TRACING : 02/05/2017 09.26 Compared to prior tracing no significant change DOCTOR: Mariann Goldstein Interpretating Date/Time 02/13/2017 17:51:40
== END 2017-02-12 15:40 | disposition home or self-care (01) ==
LOC: NEPC 11:30
DX: M79.601 Pain in right arm (principal); M54.2 Cervicalgia; I10 Essential (primary) hypertension; K21.9 Gastro-esophageal reflux disease without esophagitis; E11.40 Type 2 diabetes mellitus with diabetic neuropathy, unspecified; F17.210 Nicotine dependence, cigarettes, uncomplicated; M54.12 Radiculopathy, cervical region; N83.209 Unspecified ovarian cyst, unspecified side; I25.10 Atherosclerotic heart disease of native coronary artery without angina pectoris
CPT/HCPCS: 72125; 93005; 96374; 99285; J1885

== ENCOUNTER 2017-04-05 13:34 | Emergency (ER) | payer OTHER ==
[~2017-04-05 13:34] MED LIST changes: +PRED10PA2 PO; +ROBA500T PO; +TRAM50TA PO
[2017-04-05 13:36] VITALS: BP 166/76; PULSE 76; RESP 18; TEMP 99.9; O2SAT 96
--- NOTE | 2017-04-05 14:42 | PD ---
HPI . Flulike symptoms Chief Complaint: Fever Time Seen by Provider: 14:23 Travel History International Travel<30 days: No Contact w/Intl Traveler<30days: No Traveled to known affect area: No History of Present Illness HPI This patient presents with a 3 day history of flulike symptoms. She describes congestion, cough, chest discomfort, loose stools and low-grade fever. She has been taking Robitussin and Benadryl with relief of her symptoms. Symptoms have been mild. They have been continuous. PFSH Past Medical History Cardiovascular Problems: Yes Chest Pain: No (fluttering at times with SOB) Diabetes: Yes (Diet Controlled ) Diminished Hearing: No GERD: Yes Hypertension: Yes Musculoskeletal: Yes (many back surgeries; has an implanted tens unit) Ovarian Cysts: Yes Tubal Ligation: Yes Past Surgical History Appendectomy: Yes Cholecystectomy: Yes (03/2015) Gynecologic Surgery: Yes (TUBELECTOMY) Hysterectomy: Yes Neurologic Surgery: Yes (back) Other Surgery: Yes (BACK SURGERY) Social History Alcohol Use: No Tobacco Use: Yes (1/3 OF A PACK PER DAY) Substance Use: No Allergies-Medications (Allergen,Severity, Reaction): Coded Allergies: MRI PRECAUTION (Verified Allergy, Unknown, 02/12/17) Reported Meds & Prescriptions Reported Meds & Active Scripts Active Tramadol (Tramadol HCl) 50 Mg Tab 50 Mg PO Q6H PRN Robaxin (Methocarbamol) 500 Mg Tab 500 Mg PO TID PRN Prednisone (48) 10 mg tab Dose Pack (Prednisone) 10 Mg Dspk 10 Mg PO DIRECTED Flexeril (Cyclobenzaprine HCl) 10 Mg Tab 10 Mg PO TID Reported Aspirin 81 Mg Chew 81 Mg CHEW ONCE Atenolol 25 Mg Tab 25 Mg PO DAILY Review of Systems Except as stated in HPI: all other systems reviewed are Neg General / Constitutional: Positive: Fever, Chills HENT: Positive: Congestion Cardiovascular: Positive: Chest Pain or Discomfort Respiratory: Positive: Cough Gastrointestinal: Positive: Diarrhea Physical Exam Narrative GENERAL: Awake and alert and in no acute distress. SKIN: Warm and dry. Normal color and turgor. HEAD: Normocephalic/atraumatic. EYES: Pupils are equal. Extraocular movements are intact. ENT: Oropharynx has postnasal drip. NECK: Normal range of motion. Supple with no cervical lymphadenopathy. CARDIOVASCULAR: Regular rate and rhythm. RESPIRATORY: Nonlabored respirations. Scattered rhonchi compatible with smoking. MUSCULOSKELETAL: Atraumatic. NEUROLOGICAL: Nonfocal. PSYCHIATRIC: Appropriate mood and affect. Data Data Last Documented VS Vital Signs Date Time Temp Pulse Resp B/P (MAP) Pulse Ox O2 Delivery O2 Flow Rate FiO2 04/05/17 13:36 99.9 76 18 166/76 (106) 96 MDM Medical Decision Making Medical Screen Exam Complete: Yes Emergency Medical Condition: Yes Differential Diagnosis Differential diagnosis includes but is not limited to viral respiratory illness , bronchitis, pneumonia, allergies, CHF, asthma/COPD. Narrative Course This patient presents with flulike symptoms. She looks well. She will be discharged to home with symptomatic care. Diagnosis Primary Impression: Viral syndrome Patient Instructions: General Instructions, Viral Syndrome (DC) Additional Instructions: I recommend the use of a Neti Pot. You may use a nasal spray such as Afrin for up to 3 days as needed for nasal congestion. You may take an xwbo-bnl-dobimjz antihistamine such as Zyrtec, Dinorah or Claritin as needed for runny secretions. You may take pseudoephedrine as needed for congestion. You will need to sign for this at the pharmacy. You may take plain Mucinex, 1200 mg twice a day as needed for thick secretions. You may take a cough syrup such as Delsym as needed for cough. Motrin as needed for fever and body aches. Throat lozenges/sprays as needed for sore throat. Warm salt water gargles for sore throat. Hot tea with lemon and honey also helps soothe a sore throat. Disposition: 01 DISCHARGE HOME Condition: Stable Kandis Ng MD Apr 05, 2017 14:42
[2017-04-05] MEDS ORDERED: SODIUM CHLOR 0.9% 1000 ML INJ 1,000 ML IV ONE (15:00)
[2017-04-05 16:31] VITALS: BP 134/78
== END 2017-04-05 16:32 | disposition home or self-care (01) ==
LOC: NEPD 13:34
DX: B34.9 Viral infection, unspecified (principal); I10 Essential (primary) hypertension; F17.200 Nicotine dependence, unspecified, uncomplicated
CPT/HCPCS: 96360; 99284; J7030

== ENCOUNTER 2017-06-14 04:56 | Inpatient (IN) | payer OTHER ==
[2017-06-14] VITALS (18 sets, daily range): BP systolic 92–231; BP diastolic 53–106; PULSE 55–168; RESP 17–43; TEMP 98.6–99.6; O2SAT 95–99
[~2017-06-14] VITALS: Ht 160 cm; Wt 73.0 kg
[2017-06-14] MEDS ORDERED: ATEN25TA PO (05:10)
[2017-06-14] MEDS ORDERED: METOPROLOL TARTRATE 5 MG/5 ML VIAL IV PUSH ONE ×3 (05:15→06:00)
[2017-06-14] MEDS ORDERED: SODIUM CHLORIDE 0.9% FLUSH 10 ML FLUSH IVF PRN (05:15)
[2017-06-14] MEDS ORDERED: DILTIAZEM HCL 25 MG/5 ML VIAL IV ONE (05:15)
[2017-06-14 05:24] LABS: AUTOMATED NEUTROPHIL # 5.4 TH/MM3 (1.8-7.7); BASOPHIL # 0.1 TH/MM3 (0-0.2); BASOPHIL % 0.9 % (0.0-2.0); EOSINOPHIL # 0.4 TH/MM3 (0-0.4); EOSINOPHIL % 4.4 % (0.0-4.0); HEMATOCRIT 39.6 % (35.0-46.0); HEMOGLOBIN 13.3 GM/DL (11.6-15.3); LYMPH % 28.7 % (9.0-44.0); LYMPHOCYTE # 2.7 TH/MM3 (1.0-4.8); MEAN CELL VOLUME 90.2 FL (80.0-100.0); MEAN CORPUSCULAR HEMOGLOBIN 30.3 PG (27.0-34.0); MEAN CORPUSCULAR HGB CONC 33.6 % (32.0-36.0); MEAN PLATELET VOLUME 10.6 FL (7.0-11.0); MONO % 9.4 % (0.0-8.0); MONOCYTE # 0.9 TH/MM3 (0-0.9); NEUT % 56.6 % (16.0-70.0); PLATELET COUNT 217 TH/MM3 (150-450); RED BLOOD COUNT 4.39 MIL/MM3 (4.00-5.30); RED CELL DISTRIBUTION WIDTH 13.1 % (11.6-17.2); WHITE BLOOD COUNT 9.6 TH/MM3 (4.0-11.0)
[2017-06-14 05:37] LABS: PROTHROMBIN TIME - PATIENT 10.1 SEC (9.8-11.6)
[2017-06-14 05:45] LABS: AST (GOT) 15 U/L (15-37); BICARBONATE 27.2 MEQ/L (21.0-32.0); BLOOD UREA NITROGEN 14 MG/DL (7-18); CALCIUM 9.1 MG/DL (8.5-10.1); CHLORIDE 102 MEQ/L (98-107); CREATININE 0.91 MG/DL (0.50-1.00); GLOMERULAR FILTRATION RATE 62 ML/MIN (>89); GLUCOSE,RANDOM 95 MG/DL (74-106); MAGNESIUM 1.8 MG/DL (1.5-2.5); SODIUM (NA) 138 MEQ/L (136-145)
[2017-06-14 05:46] LABS: ALT (GPT) 20 U/L (10-53)
[2017-06-14 05:50] LABS: ALKALINE PHOSPHATASE 63 U/L (45-117); TOTAL BILIRUBIN ADULT 0.4 MG/DL (0.2-1.0); TOTAL PROTEIN 7.6 GM/DL (6.4-8.2); TROPONIN I LESS THAN 0.02 NG/ML (0.02-0.05)
[2017-06-14] MEDS ORDERED: POTASSIUM CHLORIDE 20 MEQ CONTROLLED RELEASE TAB PO ONE (06:00)
[2017-06-14] MEDS ORDERED: LABETALOL INJ 500 MG in SODIUM CHLORIDE 0.9% INJ 150 ML IV PRN (06:15)
[2017-06-14] MEDS ORDERED: SODIUM CHLORID 0.9% 500 ML INJ 500 ML IV ONE (06:15)
[2017-06-14 06:21] LABS: BACTERIA, URINE RARE /hpf; BILIRUBIN, URINE NEG (NEG); BLOOD, URINE NEG (NEG); GLUCOSE,URINE NEG (NEG); KETONE, URINE NEG (NEG); NITRITE,URINE NEG (NEG); PH, URINE 7.5 (5.0-8.5); URINE COLOR COLORLESS (YELLW/STRAW); URINE LEUKOCYTE ESTERASE NEG (NEG)
--- NOTE | 2017-06-14 06:31 | RADRPT ---
EXAM DATE/TIME: 06/14/2017 06:04 [facility] COMPARISON: CHEST SINGLE AP, February 05, 2017, 10:05. INDICATIONS : Chest pain. MEDICAL HISTORY : Hypertension. SURGICAL HISTORY : None. ENCOUNTER: Initial ACUITY: 1 day PAIN SCORE: 6/10 LOCATION: Bilateral chest FINDINGS: A single view of the chest demonstrates the lungs to be symmetrically aerated without evidence of mas s, infiltrate or effusion. The cardiomediastinal contours are unremarkable. Osseous structures are intact. Spinal stimulator projects over the lower dorsal spine CONCLUSION: No acute cardiopulmonary process. Chay Lucas MD on June 14, 2017 at 6:29 Board Certified Radiologist. This report was verified electronically.
[2017-06-14] MEDS ORDERED: CHLORHEXIDINE GLUCONATE 2 % 1 PACK (2 CLOTHS) TOP PRN (07:00)
[2017-06-14] MEDS ORDERED: ONDANSETRON HCL 4 MG/2 ML VIAL IV PUSH PRN (07:00)
[2017-06-14] MEDS ORDERED: BISACODYL 10 MG SUPP RECTAL PRN (07:00)
[2017-06-14] MEDS ORDERED: SODIUM CHLORIDE 0.9% FLUSH 10 ML FLUSH IV FLUSH PRN (07:00)
[2017-06-14] MEDS ORDERED: LACTULOSE SYRUP 20 GM/30 ML CUP PO PRN (07:00)
[2017-06-14] MEDS ORDERED: MAGNESIUM HYDROXIDE SUSP 30 ML CUP PO PRN (07:00)
[2017-06-14] MEDS ORDERED: RESP: ALBUTEROL 2.5 MG/IPRATROPIUM 0.5 MG NEB (PRN) INH (07:00)
[2017-06-14] MEDS ORDERED: NURSING INFORMATION XX SCH (07:00)
[2017-06-14] MEDS ORDERED: SENNOSIDES 8.6 MG TAB PO PRN (07:00)
[2017-06-14] MEDS ORDERED: ESMOLOL DRIP INJ PREMIX 250 ML IV PRN (07:00)
[2017-06-14] MEDS ORDERED: DEXTROSE 50% IN WATER 50 ML VIAL(D50) IV PUSH PRN (07:15)
[2017-06-14] MEDS ORDERED: POTASSIUM CHLORIDE 25 MEQ EFFERVESCENT TAB PO PRN (07:15)
[2017-06-14] MEDS ORDERED: MAGNESIUM OXIDE 400 MG TAB PO PRN (07:15)
[2017-06-14] MEDS ORDERED: SODIUM PHOSPHATE INJ 30 MMOL in SODIUM CHLOR 0.9% 250 ML INJ 240 ML IV PRN (07:15)
[2017-06-14] MEDS ORDERED: POTASSIUM PHOSPHATE INJ 30 MMOL in SODIUM CHLOR 0.9% 250 ML INJ 250 ML IV PRN (07:15)
[2017-06-14] MEDS ORDERED: POTASSIUM CHLOR 40 MEQ PREMIX 100 ML IV PRN ×2 (07:15)
[2017-06-14] MEDS ORDERED: POTASSIUM PHOSPHATE MONOBASIC 500 MG TAB PO/TUBE PRN (07:15)
[2017-06-14] MEDS ORDERED: MAGNESIUM SULFATE INJ 2 GM in SODIUM CHLORIDE 0.9% INJ 96 ML IV PRN (07:15)
[2017-06-14] MEDS ORDERED: GLUCAGON 1 MG/ML VIAL OTHER PRN (07:15)
[2017-06-14] MEDS ORDERED: DIGOXIN 0.5 MG/2 ML VIAL IV PUSH ONE (07:15)
[2017-06-14] MEDS ORDERED: MAGNESIUM SULFATE INJ 4 GM in SODIUM CHLORIDE 0.9% INJ 92 ML IV PRN (07:15)
[2017-06-14] MEDS ORDERED: POTASSIUM CHLOR 20 MEQ PREMIX 100 ML IV PRN ×2 (07:15)
[2017-06-14] MEDS ORDERED: POTASSIUM PHOSPHATE MONOBASIC 500 MG TAB PO PRN (07:15)
--- NOTE | 2017-06-14 07:57 | PD ---
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 She denies nausea, vomiting, fever, chills, abdominal pain, headache, dysuria. She does endorse chest tightness ("but no pain") which caused shortness of breath during this episode of fluttering. Although she has episodes of fluttering in the past, she advises that they have never been this intense. [facility] Past Medical History Cardiovascular Problems: Yes Chest Pain: Yes (fluttering at times with SOB) Diabetes: Yes (Diet Controlled ) Patient Takes Glucophage: No Diminished Hearing: No GERD: Yes Hypertension: Yes Musculoskeletal: Yes (many back surgeries; has an implanted tens unit) Tetanus Vaccination: < 5 Years Influenza Vaccination: Yes Ovarian Cysts: Yes Tubal Ligation: Yes Past Surgical History Appendectomy: Yes Cholecystectomy: Yes (03/2015) Gynecologic Surgery: Yes (TUBELECTOMY) Hysterectomy: Yes Neurologic Surgery: Yes (back) Other Surgery: Yes (BACK SURGERY) Social History Alcohol Use: No Tobacco Use: Yes (quit 3 months ago) Substance Use: No Allergies-Medications (Allergen,Severity, Reaction): Coded Allergies: MRI PRECAUTION (Verified Allergy, Unknown, 04/05/17) Reported Meds & Prescriptions Reported Meds & Active Scripts Active Reported Atenolol 25 Mg Tab 25 Mg PO DAILY Aspirin 81 Mg Chew 81 Mg CHEW ONCE Review of Systems Except as stated in HPI: all other systems reviewed are Neg Physical Exam Narrative GENERAL: Patient in obvious discomfort SKIN: Flushed, diaphoretic HEAD: Atraumatic. Normocephalic. EYES: Pupils equal and round. No scleral icterus. + injection ENT: No nasal bleeding or discharge. Mucous membranes pink and moist. NECK: Trachea midline. No JVD. CARDIOVASCULAR: Irreg, irreg RESPIRATORY: No accessory muscle use. Clear to auscultation. Breath sounds equal bilaterally. GASTROINTESTINAL: Abdomen soft, non-tender, nondistended. MUSCULOSKELETAL: No obvious deformities. No clubbing. No cyanosis. No edema. NEUROLOGICAL: Awake and alert. No obvious cranial nerve deficits. Motor grossly within normal limits. Normal speech. PSYCHIATRIC: Appropriate mood and affect; insight and judgment normal. Data Data Last Documented VS Vital Signs Date Time Temp Pulse Resp B/P (MAP) Pulse Ox O2 Delivery O2 Flow Rate FiO2 06/14/17 06:19 131 20 172/79 (110) 97 Nasal Cannula 2.00 06/14/17 04:58 98.7 Orders Orders Metoprolol Tartrate Inj (Lopressor Inj) (06/14/17 05:15) Diltiazem Inj (Cardizem Inj) (06/14/17 05:15) Electrocardiogram (06/14/17 05:09) Ckmb (Isoenzyme) Profile (06/14/17 05:09) Complete Blood Count With Diff (06/14/17 05:09) Comprehensive Metabolic Panel (06/14/17 05:09) Magnesium (Mg) (06/14/17 05:09) Prothrombin Time / Inr (Pt) (06/14/17 05:09) Act Partial Throm Time (Ptt) (06/14/17 05:09) Troponin I (06/14/17 05:09) Chest, Single Ap (06/14/17 05:09) Ecg Monitoring (06/14/17 05:09) Bilateral Bp Monitoring (06/14/17 05:09) Iv Access Insert/Monitor (06/14/17 05:09) Oximetry (06/14/17 05:09) Oxygen Administration (06/14/17 05:09) Sodium Chloride 0.9% Flush (Ns Flush) (06/14/17 05:15) Metoprolol Tartrate Inj (Lopressor Inj) (06/14/17 05:30) Urinalysis - C+S If Indicated (06/14/17 05:35) CKMB (06/14/17 05:15) CKMB% (06/14/17 05:15) Potassium Chloride (Kcl) (06/14/17 06:00) Metoprolol Tartrate Inj (Lopressor Inj) (06/14/17 06:00) Sodium Chlorid 0.9% 500 Ml Inj (Ns 500 M (06/14/17 06:15) Labetalol Inj (Trandate Inj) (06/14/17 06:15) Admit Order (Ed Use Only) (06/14/17 06:23) Labs Laboratory Tests Test 06/14/17 05:15 06/14/17 05:58 White Blood Count 9.6 TH/MM3 Red Blood Count 4.39 MIL/MM3 Hemoglobin 13.3 GM/DL Hematocrit 39.6 % Mean Corpuscular Volume 90.2 FL Mean Corpuscular Hemoglobin 30.3 PG Mean Corpuscular Hemoglobin Concent 33.6 % Red Cell Distribution Width 13.1 % Platelet Count 217 TH/MM3 Mean Platelet Volume 10.6 FL Neutrophils (%) (Auto) 56.6 % Lymphocytes (%) (Auto) 28.7 % Monocytes (%) (Auto) 9.4 % Eosinophils (%) (Auto) 4.4 % Basophils (%) (Auto) 0.9 % Neutrophils # (Auto) 5.4 TH/MM3 Lymphocytes # (Auto) 2.7 TH/MM3 Monocytes # (Auto) 0.9 TH/MM3 Eosinophils # (Auto) 0.4 TH/MM3 Basophils # (Auto) 0.1 TH/MM3 CBC Comment DIFF FINAL Differential Comment Prothrombin Time 10.1 SEC Prothromb Time International Ratio 1.0 RATIO Activated Partial Thromboplast Time 26.8 SEC Blood Urea Nitrogen 14 MG/DL Creatinine 0.91 MG/DL Random Glucose 95 MG/DL Total Protein 7.6 GM/DL Albumin 4.0 GM/DL Calcium Level 9.1 MG/DL Magnesium Level 1.8 MG/DL Alkaline Phosphatase 63 U/L Aspartate Amino Transf (AST/SGOT) 15 U/L Alanine Aminotransferase (ALT/SGPT) 20 U/L Total Bilirubin 0.4 MG/DL Sodium Level 138 MEQ/L Potassium Level 3.3 MEQ/L Chloride Level 102 MEQ/L Carbon Dioxide Level 27.2 MEQ/L Anion Gap 9 MEQ/L Estimat Glomerular Filtration Rate 62 ML/MIN Total Creatine Kinase 157 U/L Creatine Kinase MB 1.8 NG/ML Troponin I LESS THAN 0.02 NG/ML Urine Color COLORLESS Urine Turbidity CLEAR Urine pH 7.5 Urine Specific [place] 1.003 Urine Protein NEG mg/dL Urine Glucose (UA) NEG mg/dL Urine Ketones NEG mg/dL Urine Occult Blood NEG Urine Nitrite NEG Urine Bilirubin NEG Urine Urobilinogen LESS THAN 2.0 MG/DL Urine Leukocyte Esterase NEG Urine RBC 2 /hpf Urine Bacteria RARE /hpf Microscopic Urinalysis Comment CULT NOT INDICATED MDM Medical Decision Making Medical Screen Exam Complete: Yes Emergency Medical Condition: Yes Interpretation(s) Last Impressions Chest X-Ray 06/14/17 0501 Signed Impressions: Service Date/Time: , June 14, 2017 06:04 - CONCLUSION: No acute cardiopulmonary process. Chay Lucas MD ECG: Atrial fib with RVR, ventricular rate 100-150s, diffuse ST depression Labs: CBC within normal limits; chem-slightly decreased potassium; coags-within normal limits; urinalysis-nitrite and leukocyte esterase negative; cardiac enzymes-within normal limits. Differential Diagnosis Atrial fibrillation/atrial flutter with RVR; ACS; Narrative Course Patient approached ER staff while working in the department and advised that she was not feeling well. She was placed on the pvc monitor and O2 via nasal cannula and was found to be both hypertensive (206/106) and tachycardic ( irreg rate between 140s to 180s). An ECG was done, which showed atrial fibrillation with RVR. As patient reported being on metoprolol at home and there is a diltiazem shortage, she was written for an initial dose of 2.5mg IV, which did not improve her HR. She was given another 2.5mg IV dose approximately 15 minutes after the first dose. Her heart rate remained irregular and although would decrease to 110s, it would subsequently return to 140s and higher. Of note , patient developed intermittent runs of ventricular tachycardia, which would spontaneously resolve and recur, but the atrial fib with RVR was the patient's predominant rhythm in the ER. She was given 5mg IV metoprolol and once again her heart rate would decrease to low 100s but return to mid to [id number] and decrease again (BP decreased to systolic BP in the 160s). Although the patient was approaching the maximum IV dose of metoprolol for atrial fib with RVR and could receive another dose, I reached out to the ICU attending as it became clear that the patient would need more than the IV doses of metoprolol. Ms. Lai felt like she needed to urinate but was unable to while in the ER , despite attempting to use a bedside commode and bed aceves. A jiang was placed which returned approximately 900cc of clear liquid (appeared like water). She was given IV normal saline as there was a thought that the high volume of urine expelled may be contributing to the tachycardia. Also, she was hypokalemic and repleted with 40 MEQ KCL po as this may be contributing to the cardiac irritability. She was started on labetalol gtt. Soon after she was evaluated by the ICU attending, Dr. Ford in the ER, who prefered esmolol gtt to labetalol as it has a shorter half life. Esmolol gtt was ordered, labetalol gtt d/c'd and esmolol gtt started while patient was in the ER. Her heart rate remained elevated (120s-170s) on the esmolol gtt and blood pressure began to drop. Dr. Ford was called, who advised nurse to give the digoxin ordered, decrease esmolol gtt rate, and transport patient to the ICU for further evaluation and management as she has an available bed ready. Diagnosis Primary Impression: Atrial fibrillation with RVR Admitting Information Admitting Physician Requests: Admit Condition: Keisha Weaver MD June 14, 2017 07:57
[2017-06-14] MEDS: INSULIN ASPART SUPPLEMENTAL SCALE SQ SCH ×4 (08:00→20:12)
[2017-06-14] MEDS: FAMOTIDINE 20 MG TAB PO SCH ×2 (08:57→20:12)
[2017-06-14] MEDS: HEPARIN SODIUM - SQ 10,000 UNITS/ML VIAL SQ SCH ×2 (08:57→20:12)
[2017-06-14] MEDS: DILTIAZEM HCL 60 MG TAB PO SCH ×2 (08:57→17:00)
[2017-06-14] MEDS: METOPROLOL TARTRATE 50 MG TAB PO SCH ×2 (08:57→21:00)
[2017-06-14] MEDS: SODIUM CHLORIDE 0.9% FLUSH 10 ML FLUSH IV FLUSH SCH ×2 (08:58→20:13)
[2017-06-14] MEDS: DOCUSATE SODIUM 50 MG/SENNA 8.6 MG TAB PO SCH ×2 (08:58→20:12)
--- NOTE | 2017-06-14 13:14 | HHI.HP ---
HPI Service Critical Care Medicine Primary Care Physician Annelise Chen M.D. 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 The patient reported that she had a history of heart palpitations in the past in 1999 and was placed on a Holter monitor for several days and diagnosed with atrial fibrillation she says she was placed on some type of medication for heart rate and another medication for her blood pressure but she stopped in 2003 due to loss of insurance. The patient stated that she currently takes some type of blood pressure medicine but she does not know the name of that and will have a brought from home. Upon presentation the patient now also complained of chest pain with the heart palpitations. EKG was obtained revealing A. fib RVR reportedly heart rate in the 170s, also a short run of ventricular tach. The patient was placed on a labetalol infusion. Laboratory results revealed hypokalemia and the patient received 40 mEq of potassium by mouth. Medical care medicine was consulted.Upon my evaluation the patient's heart rate 150s, A. fib RVR patient breathing comfortably on 2 L nasal cannula. Blood pressure 172/79. His primary care physician is Dr. Annelise Chen, she says she obtains her care from [facility]. History PFSH Past Medical History Cardiovascular Problems: Yes Chest Pain: Yes (fluttering at times with SOB) Diabetes: Yes (Diet Controlled ) Patient Takes Glucophage: No Diminished Hearing: No GERD: Yes Hypertension: Yes Musculoskeletal: Yes (many back surgeries; has an implanted tens unit) Tetanus Vaccination: < 5 Years Influenza Vaccination: Yes Ovarian Cysts: Yes Tubal Ligation: Yes Past Surgical History Appendectomy: Yes Cholecystectomy: Yes (03/2015) Gynecologic Surgery: Yes (TUBELECTOMY) Hysterectomy: Yes Neurologic Surgery: Yes (back) Other Surgery: Yes (BACK SURGERY) Social History Alcohol Use: No Tobacco Use: Yes (quit 3 months ago) Substance Use: No Allergies-Medications Allergies-Medications (Allergen,Severity, Reaction): Coded Allergies: MRI PRECAUTION (Verified Allergy, Unknown, 04/05/17) Reported Meds & Prescriptions Reported Meds & Active Scripts Active Reported Atenolol 25 Mg Tab 25 Mg PO DAILY Aspirin 81 Mg Chew 81 Mg CHEW ONCE Review of Systems ROS 12 point review of systems done with patient negative except for pertinent positives mentioned in the above history and physical Past Family Social History Allergies: Coded Allergies: MRI PRECAUTION (Verified Allergy, Unknown, 04/05/17) Family History Patient's is . Lives with significant other for the last 4 years Social History Patient denies EtOH or illicit drug use patient has [id number] history of smoking quit 3 months ago Physical Exam Vital Signs Vital Signs Date Time Temp Pulse Resp B/P (MAP) Pulse Ox O2 Delivery O2 Flow Rate FiO2 06/14/17 12:00 99.3 59 37 92/53 (66) 97 06/14/17 12:00 59 06/14/17 11:12 58 91/49 06/14/17 10:45 65 91/53 06/14/17 10:00 144 06/14/17 09:37 147 93/62 06/14/17 09:03 154 125/57 06/14/17 08:40 142 122/78 06/14/17 08:30 06/14/17 08:30 98.6 149 21 122/78 (93) 97 06/14/17 08:15 150 17 127/62 (83) 98 Nasal Cannula 2.00 06/14/17 08:00 142 20 117/69 (85) 98 Nasal Cannula 06/14/17 07:45 140 20 102/67 (79) 98 Nasal Cannula 06/14/17 07:32 150 20 111/64 (80) 98 Nasal Cannula 06/14/17 07:16 148 136/65 06/14/17 06:19 131 20 172/79 (110) 97 Nasal Cannula 2.00 06/14/17 05:31 126 168/90 (116) 97 2.00 06/14/17 05:20 133 174/93 (120) 95 Nasal Cannula 2.00 06/14/17 05:19 96 Nasal Cannula 2.00 06/14/17 05:19 96 Nasal Cannula 2.00 06/14/17 05:07 146 20 206/106 (139) 97 Room Air 06/14/17 04:58 98.7 168 20 231/101 (144) 97 Physical Exam GENERAL: Is a well-developed well-nourished lady in moderate distress SKIN: Warm and dry. HEAD: Atraumatic. Normocephalic. EYES: Pupils equal and round. 3 mm and brisk. no scleral icterus. No injection or drainage. ENT: No nasal bleeding or discharge. Mucous membranes pink and moist. Nasal cannula 2 L/min NECK: Trachea midline. No JVD. CARDIOVASCULAR: Normal rate, regular rhythm. RESPIRATORY: No accessory muscle use. Clear to auscultation. Breath sounds equal bilaterally. GASTROINTESTINAL: Abdomen soft, non-tender, nondistended. No guarding. Bowel sounds active MUSCULOSKELETAL: Extremities without clubbing, cyanosis, or edema. No obvious deformities. NEUROLOGICAL: Awake and alert. RASS 0. No gross focal/sensory deficits. Follows commands in all 4 extremities. Motor strength 5/5 Laboratory Laboratory Tests Test 06/14/17 05:15 06/14/17 05:58 06/14/17 08:34 06/14/17 09:35 White Blood Count 9.6 Red Blood Count 4.39 Hemoglobin 13.3 Hematocrit 39.6 Mean Corpuscular Volume 90.2 Mean Corpuscular Hemoglobin 30.3 Mean Corpuscular Hemoglobin Concent 33.6 Red Cell Distribution Width 13.1 Platelet Count 217 Mean Platelet Volume 10.6 Neutrophils (%) (Auto) 56.6 Lymphocytes (%) (Auto) 28.7 Monocytes (%) (Auto) 9.4 Eosinophils (%) (Auto) 4.4 Basophils (%) (Auto) 0.9 Neutrophils # (Auto) 5.4 Lymphocytes # (Auto) 2.7 Monocytes # (Auto) 0.9 Eosinophils # (Auto) 0.4 Basophils # (Auto) 0.1 CBC Comment DIFF FINAL Differential Comment Prothrombin Time 10.1 Prothromb Time International Ratio 1.0 Activated Partial Thromboplast Time 26.8 Blood Urea Nitrogen 14 Creatinine 0.91 Random Glucose 95 Total Protein 7.6 Albumin 4.0 Calcium Level 9.1 Magnesium Level 1.8 Alkaline Phosphatase 63 Aspartate Amino Transf (AST/SGOT) 15 Alanine Aminotransferase (ALT/SGPT) 20 Total Bilirubin 0.4 Sodium Level 138 Potassium Level 3.3 3.6 Chloride Level 102 Carbon Dioxide Level 27.2 Anion Gap 9 Estimat Glomerular Filtration Rate 62 Total Creatine Kinase 157 Creatine Kinase MB 1.8 Troponin I LESS THAN 0.02 0.06 Urine Color COLORLESS Urine Turbidity CLEAR Urine pH 7.5 Urine Specific [place] 1.003 Urine Protein NEG Urine Glucose (UA) NEG Urine Ketones NEG Urine Occult Blood NEG Urine Nitrite NEG Urine Bilirubin NEG Urine Urobilinogen LESS THAN 2.0 Urine Leukocyte Esterase NEG Urine RBC 2 Urine Bacteria RARE Microscopic Urinalysis Comment CULT NOT INDICATED Nasal Screen MRSA (PCR) MRSA NOT DETECTED Result Diagram: 06/14/17 0515 06/14/17 0935 Imaging Last Impressions Chest X-Ray 06/14/17 0509 Signed Impressions: Service Date/Time: , June 14, 2017 06:04 - CONCLUSION: No acute cardiopulmonary process. Chay Lucas MD Septic Shock Reassessment Septic shock perfusion: reassessment completed Caprini VTE Risk Assessment Caprini VTE Risk Assessment: Mod/High Risk (score >= 2) Caprini Risk Assessment Model Point Value = 1 Point Value = 2 Point Value = 3 Point Value = 5 Age 41-60 Minor surgery BMI > 25 kg/m2 Swollen legs Varicose veins or History of unexplained or recurrent spontaneous Oral contraceptives or hormone replacement Sepsis (< 1 month) Serious lung disease, including pneumonia (< 1 month) Abnormal pulmonary function Acute myocardial infarction Congestive heart failure (< 1 month) History of inflammatory bowel disease Medical patient at bed rest Age 61-74 Arthroscopic surgery Major open surgery (> 45 min) Laparoscopic surgery (> 45 min) Malignancy Confined to bed (> 72 hours) Immobilizing plaster cast Central venous access Age >= 75 History of VTE Family history of VTE Factor V Leiden Prothrombin [id number] Lupus anticoagulant Anticardiolipin antibodies Elevated serum homocysteine Heparin-induced thrombocytopenia Other congenital or acquired thrombophilia Stroke (< 1 month) Elective arthroplasty Hip, pelvis, or leg fracture Acute spinal cord injury (< 1 month) Prophylaxis Regimen Total Risk Factor Score Risk Level Prophylaxis Regimen 0-1 Low Early ambulation 2 Moderate Order ONE of the following: *Sequential Compression Device (SCD) *Heparin 5000 units SQ BID 3-4 Higher Order ONE of the following medications: *Heparin 5000 units SQ TID *Enoxaparin/Lovenox 40 mg SQ daily (WT < 150 kg, CrCl > 30 mL/min) *Enoxaparin/Lovenox 30 mg SQ daily (WT < 150 kg, CrCl > 10-29 mL/min) *Enoxaparin/Lovenox 30 mg SQ BID (WT < 150 kg, CrCl > 30 mL/min) AND/OR *Sequential Compression Device (SCD) 5 or more Highest Order ONE of the following medications: *Heparin 5000 units SQ TID (Preferred with Epidurals) *Enoxaparin/Lovenox 40 mg SQ daily (WT < 150 kg, CrCl > 30 mL/min) *Enoxaparin/Lovenox 30 mg SQ daily (WT < 150 kg, CrCl > 10-29 mL/min) *Enoxaparin/Lovenox 30 mg SQ BID (WT < 150 kg, CrCl > 30 mL/min) AND *Sequential Compression Device (SCD) Assessment and Plan Problem List: (1) Atrial fibrillation with RVR ICD Code: I48.91 - Unspecified atrial fibrillation Status: Acute Assessment and Plan Assessment This is a 66-year-old female with acute onset of A. fib with a heart rate in the 170s and hypertension. Patient currently on labetalol infusion. Admit to ICU. Plan by systems: Neurologic: Neuro checks per ICU protocol Tylenol 650 mg for temperature greater than 101.5 Respiratory: Tobacco use disorder Dyspnea Maintain O2 saturation greater than 92%, patient currently on 2 L/min nasal cannula wean as tolerated Bronchodilators every 4 hours as needed for wheezing Patient counseled to continue smoking cessation- has history [id number] smoking Incentive spirometry Obtain ABGs and chest x-rays as clinically indicated Cardiovascular: A. fib RVR Hypertension Continue esmolol infusion and begin weaning up on p.o. dosing Digoxin 0.125 mg IV 1 dose Begin metoprolol 50 mg twice daily and Cardizem 60 mg every 8 hours wean esmolol Maintain heart rate less than 100 Obtain echo Trend troponin level-initial <0.02 Renal: No Calabrese indicated at this time -- Strict I/Os FEN/GI: Electrolyte derangement Replete electrolytes per ICU protocol Potassium level 3.1 ,40 meq p.o. given in the ED, repeat level 3.6 Monitor BMP Heme/ID: Monitor CBC Transfuse for hemoglobin less than 7 Endocrine: Obtain TSH -- SSI Prophylaxis: GI Prophylaxis Famotidine DVT Prophylaxis -- SCDs Heparin subcu for now, patient may require heparin infusion Lines: Peripheral IVs x2. Central line if indicated Dispo: my billing statement This patient remains critically ill with one or more organ systems which are or may become a threat to life. I have spent in excess of 30 minutes discontinuously in the care and management of this patient. This time is exclusive of procedures, and includes, but is not limited to, evaluation of the patient, review of the medical record, discussions with family, consultants, nursing staff, or respiratory therapy, and documentation in the medical record. Code Status Full Discussed Condition With Dr. Golden, ED RN at bedside and patient Alia Ford MD June 14, 2017 13:14
--- NOTE | 2017-06-14 15:39 | EKG ---
Date Performed: 06/14/2017 Time Performed: 04:58:31 PTAGE: 66 years EKG: ATRIAL FIBRILLATION WITH RAPID VENTRICULAR RESPONSE MARKED ST DEPRESSION, CONSIDER SUBENDO CARDIAL INJURY ABNORMAL ECG PREVIOUS TRACING 02/12/17 Since the prior tracing, the patient has developed atrial fibrillation with a rapid ventricular response. The diffuse marked ST segment changes are also new, and myocardia l ischemia should be excluded clinically. DOCTOR: Kaci Conley Interpretating Date/Time 06/14/2017 15:38:47
[2017-06-14 16:21] LABS: PHOSPHORUS 3.3 MG/DL (2.5-4.9); TROPONIN I 0.11 NG/ML (0.02-0.05)
[2017-06-14 16:45] LABS: THYROXINE (T4) 9.3 MCG/DL (4.8-13.9)
[2017-06-14] MEDS: TEMAZEPAM 15 MG CAP PO PRN (20:12)
[2017-06-15] VITALS (22 sets, daily range): BP systolic 99–169; BP diastolic 49–77; PULSE 53–70; RESP 15–41; TEMP 98–99; O2SAT 90–96
[2017-06-15] MEDS: DILTIAZEM HCL 60 MG TAB PO SCH (01:00)
[2017-06-15] MEDS: ACETAMINOPHEN 325 MG TAB PO PRN ×3 (03:33→22:59)
[2017-06-15 04:00] LABS: AUTOMATED NEUTROPHIL # 3.9 TH/MM3 (1.8-7.7); BASOPHIL # 0.2 TH/MM3 (0-0.2); BASOPHIL % 2.4 % (0.0-2.0); EOSINOPHIL # 0.3 TH/MM3 (0-0.4); EOSINOPHIL % 4.3 % (0.0-4.0); HEMATOCRIT 36.1 % (35.0-46.0); HEMOGLOBIN 11.8 GM/DL (11.6-15.3); LYMPH % 32.7 % (9.0-44.0); LYMPHOCYTE # 2.6 TH/MM3 (1.0-4.8); MEAN CELL VOLUME 91.3 FL (80.0-100.0); MEAN CORPUSCULAR HEMOGLOBIN 29.9 PG (27.0-34.0); MEAN CORPUSCULAR HGB CONC 32.7 % (32.0-36.0); MEAN PLATELET VOLUME 11.1 FL (7.0-11.0); MONO % 10.1 % (0.0-8.0); MONOCYTE # 0.8 TH/MM3 (0-0.9); NEUT % 50.5 % (16.0-70.0); PLATELET COUNT 180 TH/MM3 (150-450); RED BLOOD COUNT 3.96 MIL/MM3 (4.00-5.30); RED CELL DISTRIBUTION WIDTH 13.1 % (11.6-17.2); WHITE BLOOD COUNT 7.8 TH/MM3 (4.0-11.0)
[2017-06-15] MEDS: CHLORHEXIDINE GLUCONATE 2 % 1 PACK (2 CLOTHS) TOP SCH (04:00)
[2017-06-15 04:34] LABS: ALBUMIN 3.3 GM/DL (3.4-5.0); ALKALINE PHOSPHATASE 51 U/L (45-117); ALT (GPT) 14 U/L (10-53); AST (GOT) 10 U/L (15-37); BICARBONATE 25.3 MEQ/L (21.0-32.0); BLOOD UREA NITROGEN 14 MG/DL (7-18); CALCIUM 8.6 MG/DL (8.5-10.1); CHLORIDE 108 MEQ/L (98-107); CREATININE 0.83 MG/DL (0.50-1.00); GLOMERULAR FILTRATION RATE 69 ML/MIN (>89); GLUCOSE,RANDOM 97 MG/DL (74-106); PHOSPHORUS 3.8 MG/DL (2.5-4.9); SODIUM (NA) 143 MEQ/L (136-145); TOTAL BILIRUBIN ADULT 0.5 MG/DL (0.2-1.0); TOTAL PROTEIN 6.5 GM/DL (6.4-8.2); TROPONIN I 0.12 NG/ML (0.02-0.05)
[2017-06-15] MEDS: INSULIN ASPART SUPPLEMENTAL SCALE SQ SCH ×4 (08:00→20:46)
[2017-06-15] MEDS: SODIUM CHLORIDE 0.9% FLUSH 10 ML FLUSH IV FLUSH SCH ×2 (08:48→20:44)
[2017-06-15] MEDS: DOCUSATE SODIUM 50 MG/SENNA 8.6 MG TAB PO SCH ×2 (08:48→20:43)
[2017-06-15] MEDS: METOPROLOL TARTRATE 25 MG TAB PO SCH ×2 (08:48→20:44)
--- NOTE | 2017-06-15 08:57 | HHI.PR ---
Subjective Remarks no complaints Objective Vitals heart reg lung cta abd s/nt ext no edema Vital Signs Date Time Temp Pulse Resp B/P (MAP) Pulse Ox O2 Delivery O2 Flow Rate FiO2 06/15/17 06:00 57 06/15/17 04:00 61 06/15/17 04:00 99.0 61 24 113/55 (74) 96 06/15/17 02:00 61 06/15/17 00:00 98.3 60 28 120/58 (78) 96 06/15/17 00:00 60 06/14/17 22:00 65 06/14/17 20:00 58 06/14/17 20:00 99.6 58 20 122/60 (80) 99 06/14/17 18:00 58 06/14/17 16:00 98.7 55 43 97/53 (68) 97 06/14/17 16:00 55 06/14/17 14:00 59 06/14/17 12:00 99.3 59 37 92/53 (66) 97 06/14/17 12:00 59 06/14/17 11:12 58 91/49 06/14/17 10:45 65 91/53 06/14/17 10:00 144 06/14/17 09:37 147 93/62 06/14/17 09:03 154 125/57 Result Diagram: 06/15/17 0306 06/15/17 0306 A/P Problem List: (1) Atrial fibrillation with RVR ICD Codes: I48.91 - Unspecified atrial fibrillation Status: Acute Plan: 1. afib/rvr and per ED the pt was having runs of VT as well on presentation she has been more sob with exertion at work lately and chest heaviness. converted to sinus rhythm today 2. anxiety/depression. 3. htn continue low dose metoprolol cont asa transfer to [facility] cardiology consulted and pending. Aris Doran MD June 15, 2017 08:57
[2017-06-15] MEDS: HEPARIN SODIUM - SQ 10,000 UNITS/ML VIAL SQ SCH ×2 (09:00→20:41)
[2017-06-15] MEDS ORDERED: ASPIRIN 81 MG CHEW TAB CHEW ONE (10:00)
[2017-06-15] MEDS ORDERED: REGADENOSON INJ 0.4 MG/5 ML SYR ONE (13:32)
--- NOTE | 2017-06-15 15:29 | RADRPT ---
EXAM DATE/TIME: 06/15/2017 13:01 [place] COMPARISON: No previous studies available for comparison. INDICATIONS : Chest pain with dyspnea. History of artial flutter. Atrial fibrillation. DOSE: 26.3 mCi Tc99m Myoview at stress. 8.4 mCi Tc99m Myoview at rest. 0.4 mg Lexiscan STRESS SYMPTOMS: Dyspnea. EJECTION FRACTION: 63% MEDICAL HISTORY : Hypertension. Ex-smoker. SURGICAL HISTORY : Cholecystectomy. Tubal ligation. Back. Spinal stimulator. ENCOUNTER: Initial ACUITY: 2 days PAIN SCALE: 3/10 LOCATION: Bilateral chest TECHNIQUE: The patient underwent pharmacologic stress with infusion of prescribed dose. Continuous ECG tracing was monitored during stress. Gated SPECT imaging was performed after stress and conventional SPECT i maging was performed at rest. The examination was performed on a SPECT/CT scanner, both attenuation and non-corrected datasets were reviewed. FINDINGS: DISTRIBUTION: The maximum perfused segment at stress is in the anterior lateral PERFUSION STUDY: The pattern of perfusion at stress is within normal limits. GATED STUDY: There is intact wall motion and thickening without hypokinetic or dyskinetic segments. CONCLUSION: Negative for stress-induced ischemia, normal ejection fraction RISK CATEGORY: Low (<1% Annual Mortality Rate) Grant Sal MD FACR on June 15, 2017 at 15:26 Board Certified Radiologist. This report was verified electronically.
[2017-06-15] MEDS: TEMAZEPAM 15 MG CAP PO PRN ×2 (20:43→22:55)
[2017-06-15] MEDS ORDERED: CITALOPRAM HYDROBROMIDE 20 MG TAB PO SCH (21:00)
[2017-06-16] VITALS (18 sets, daily range): BP systolic 137–158; BP diastolic 69–84; PULSE 48–60; RESP 16–20; TEMP 97.6–98.7; O2SAT 93–97
[2017-06-16] MEDS: CHLORHEXIDINE GLUCONATE 2 % 1 PACK (2 CLOTHS) TOP SCH (04:00)
[2017-06-16] MEDS ORDERED: ASPIRIN 81 MG CHEW TAB CHEW SCH (09:00)
--- NOTE | 2017-06-16 09:27 | HHI.PR ---
Subjective Remarks no cp or sob no dizziness Objective Vitals heart reg lung cta abd s/nt ext no edema Vital Signs Date Time Temp Pulse Resp B/P (MAP) Pulse Ox O2 Delivery O2 Flow Rate FiO2 06/16/17 08:00 98.3 54 16 145/69 (94) 93 06/16/17 08:00 54 06/16/17 06:00 52 06/16/17 05:53 48 06/16/17 05:00 52 06/16/17 04:00 97.6 51 20 146/76 (99) 95 06/16/17 04:00 54 06/16/17 03:00 56 06/16/17 02:00 48 06/16/17 01:00 52 06/16/17 00:00 98.7 55 20 137/77 (97) 94 06/16/17 00:00 59 06/15/17 23:00 56 06/15/17 22:04 21 06/15/17 22:00 58 06/15/17 21:00 58 06/15/17 20:00 70 06/15/17 20:00 98.0 54 20 119/64 (82) 95 06/15/17 19:00 60 06/15/17 18:36 58 06/15/17 18:31 98.1 58 21 141/70 (93) 96 06/15/17 17:30 57 24 143/63 (89) 94 06/15/17 17:00 56 29 137/62 (87) 94 06/15/17 16:30 59 20 134/60 (84) 93 06/15/17 16:30 59 06/15/17 16:13 59 15 151/65 (93) 96 06/15/17 16:13 59 06/15/17 16:00 98.3 06/15/17 16:00 64 37 95 06/15/17 16:00 64 06/15/17 12:01 53 41 99/49 (66) 91 06/15/17 12:01 53 06/15/17 12:00 53 06/15/17 12:00 53 38 90 06/15/17 11:00 53 06/15/17 10:00 54 Result Diagram: 06/15/17 0306 06/15/17 0306 A/P Problem List: (1) Atrial fibrillation with RVR ICD Codes: I48.91 - Unspecified atrial fibrillation Status: Acute Plan: 1. afib/rvr and per ED the pt was having runs of VT as well on presentation she has been more sob with exertion at work lately and chest heaviness. converted to sinus rhythm Lexiscan negative for ischemia 2. anxiety/depression. 3. htn continue low dose metoprolol cont asa cardiology consulted and pending. will decide on anticoagulation and d/c with f/ u echo pending. Aris Doran MD June 16, 2017 09:27
[2017-06-16] MEDS ORDERED: METOPROLOL TARTRATE 25 MG TAB PO ONE (09:30)
[2017-06-16] MEDS: DOCUSATE SODIUM 50 MG/SENNA 8.6 MG TAB PO SCH (09:33)
[2017-06-16] MEDS: SODIUM CHLORIDE 0.9% FLUSH 10 ML FLUSH IV FLUSH SCH (09:33)
[2017-06-16] MEDS: HEPARIN SODIUM - SQ 10,000 UNITS/ML VIAL SQ SCH (09:33)
--- NOTE | 2017-06-16 13:26 | PD.CONS ---
HPI Service Cardiology Consult Requested By [facility] Hospitalist Reason for Consult New onset afib, Vtachy Primary Care Physician Annelise Chen M.D. History of Present Illness The patient is a 66-year-old lady, presented to ED yesterday while she was at work here in [employer] de[employer] due to palpitatio. She was found to be in afib RVR upt to 170s bpm. She also reported of chest pain with the heart palpitations. The patient was placed on a labetalol infusion and transferred to MICU, and afib was converted to sinus rhythm. The patient reported that she had a history of heart palpitations in the past in 1999 and was placed on a Holter monitor for several days and diagnosed with atrial fibrillation she says she was placed on some type of medication for heart rate and another medication for her blood pressure but she stopped in 2003 due to loss of insurance. her primary care physician is Dr. Annelise Chen,\ Review of Systems Consitutional: DENIES: Fatigue, Fever, Chills, Weight gain, Weight loss Eyes: DENIES: Amaurosis Fugax, Change in vision HEENT: DENIES: Lightheadedness, Change in hearing Respiratory: DENIES: See HPI, Cough, Snoring, Shortness of breath, Wheezing, Sputum production Cardiovascular: COMPLAINS OF: Chest pain, Palpitations, DENIES: See HPI, Syncope, Tachycardia Gastrointestinal: DENIES: Nausea, Vomiting, Change in bowel habits, Reflux, Bloody stools, Melena Genitourinary: DENIES: Urinary incontinence, Difficulty voiding Integumentary: DENIES: Rash Neurologic: DENIES: Tingling or numbness, Memory problems, Poor Balance, Stroke symptoms Musculoskeletal: DENIES: Joint pain, Muscle pain, Limited range of motion, Back pain Psychiatric: DENIES: Anxiety, Depression, Sleep disturbances Hematologic: DENIES: Bruising tendencies, Bleeding tendencies Endocrine: DENIES: Weight gain, Weight loss, Thyroid disease Past Family Social History Allergies: Coded Allergies: MRI PRECAUTION (Verified Allergy, Unknown, 04/05/17) Past Medical History HTN, DM, HLP,GERD Past Surgical History Appendectomy: Yes Cholecystectomy: Yes (03/2015) Gynecologic Surgery: Yes (TUBELECTOMY) Hysterectomy: Yes Neurologic Surgery: Yes (back) Other Surgery: Yes (BACK SURGERY) Reported Medications Reported Meds & Active Scripts Active Reported Atenolol 25 Mg Tab 25 Mg PO DAILY Aspirin 81 Mg Chew 81 Mg CHEW ONCE Active Ordered Medications Current Medications Medications (Trade) Dose Ordered Sig/Charity Route Start Time Stop Time Status Last Admin (NS Flush) 2 ml UNSCH PRN IVF 06/14/17 05:15 (NS Flush) 2 ml UNSCH PRN IV FLUSH 06/14/17 07:00 (NS Flush) 2 ml BID IV FLUSH 06/14/17 09:00 06/16/17 09:33 (Tylenol) 650 mg Q6H PRN PO 06/14/17 07:00 06/15/17 22:59 (Zofran Inj) 4 mg Q6H PRN IV PUSH 06/14/17 07:00 (Duoneb Neb) 1 ampule Q4HR NEB PRN INH 06/14/17 07:00 (Heparin Inj) 5,000 units Q12H SQ 06/14/17 09:00 06/16/17 09:33 ([facility] [place] [facility]) 1 Q361D XX 06/14/17 07:00 (Chlorhexidine 2% Cloth) 3 pack Taper DAILY@04 TOP 06/15/17 04:00 06/11/18 03:59 (Chlorhexidine 2% Cloth) 3 pack UNSCH PRN TOP 06/14/17 07:00 (Chinyere-Colace) 1 tab BID PO 06/14/17 09:00 06/16/17 09:33 (Milk Of Magnesia Liq) 30 ml Q12H PRN PO 06/14/17 07:00 (Senokot) 17.2 mg Q12H PRN PO 06/14/17 07:00 (Dulcolax Supp) 10 mg DAILY PRN RECTAL 06/14/17 07:00 (Lactulose Liq) 30 ml DAILY PRN PO 06/14/17 07:00 (D50w (Vial) Inj) 50 ml UNSCH PRN IV PUSH 06/14/17 07:15 (Glucagon Inj) 1 mg UNSCH PRN OTHER 06/14/17 07:15 (NovoLOG SUPPLEMENTAL SCALE) 1 ACHS SLIDING SCALE SQ 06/14/17 08:00 (Restoril) 15 mg HS PRN PO 06/14/17 18:15 06/15/17 22:55 (CeleXA) 10 mg HS PO 06/15/17 21:00 06/15/17 20:42 (Aspirin Chew) 81 mg DAILY CHEW 06/16/17 09:00 06/16/17 09:33 (Lopressor) 12.5 mg DAILY PO 06/17/17 09:00 (Lopressor) 25 mg HS PO 06/16/17 21:00 Family History asked. NO pertinent FHx Social History Alcohol Use: No Tobacco Use: Yes (quit 3 months ago) Substance Use: No Physical Exam Vital Signs Vital Signs Date Time Temp Pulse Resp B/P (MAP) Pulse Ox O2 Delivery O2 Flow Rate FiO2 06/16/17 12:05 55 06/16/17 12:05 98.3 54 16 150/84 (106) 94 06/16/17 08:00 98.3 54 16 145/69 (94) 93 06/16/17 08:00 54 06/16/17 06:00 52 06/16/17 05:53 48 06/16/17 05:00 52 06/16/17 04:00 97.6 51 20 146/76 (99) 95 06/16/17 04:00 54 06/16/17 03:00 56 06/16/17 02:00 48 06/16/17 01:00 52 06/16/17 00:00 98.7 55 20 137/77 (97) 94 06/16/17 00:00 59 06/15/17 23:00 56 06/15/17 22:04 21 06/15/17 22:00 58 06/15/17 21:00 58 06/15/17 20:00 70 06/15/17 20:00 98.0 54 20 119/64 (82) 95 06/15/17 19:00 60 06/15/17 18:36 58 06/15/17 18:31 98.1 58 21 141/70 (93) 96 06/15/17 17:30 57 24 143/63 (89) 94 06/15/17 17:00 56 29 137/62 (87) 94 06/15/17 16:30 59 20 134/60 (84) 93 06/15/17 16:30 59 06/15/17 16:13 59 15 151/65 (93) 96 06/15/17 16:13 59 06/15/17 16:00 98.3 06/15/17 16:00 64 37 95 06/15/17 16:00 66 Physical Exam GENERAL: Is a well-developed well-nourished lady in moderate distress SKIN: Warm and dry. HEAD: Atraumatic. Normocephalic. EYES: Pupils equal and round. 3 mm and brisk. no scleral icterus. No injection or drainage. ENT: No nasal bleeding or discharge. Mucous membranes pink and moist. Nasal cannula 2 L/min NECK: Trachea midline. No JVD. CARDIOVASCULAR: Normal rate, regular rhythm. NO murmur. RESPIRATORY: No accessory muscle use. Clear to auscultation. Breath sounds equal bilaterally. GASTROINTESTINAL: Abdomen soft, non-tender, nondistended. No guarding. Bowel sounds active MUSCULOSKELETAL: Extremities without clubbing, cyanosis, or edema. No obvious deformities. NEUROLOGICAL: Awake and alert. RASS 0. No gross focal/sensory deficits. Follows commands in all 4 extremities. Motor strength 5/5 Result Diagram: 06/15/17 0306 06/15/17 0306 Assessment and Plan Problem List: (1) Hypertension ICD Codes: I10 - Essential (primary) hypertension (2) Diabetes mellitus ICD Codes: E11.9 - Type 2 diabetes mellitus without complications (3) Angina pectoris ICD Codes: I20.9 - Angina pectoris, unspecified (4) Atrial fibrillation with RVR ICD Codes: I48.91 - Unspecified atrial fibrillation Status: Acute (5) Non-STEMI (non-ST elevated myocardial infarction) ICD Codes: I21.4 - Non-ST elevation (NSTEMI) myocardial infarction (6) Elevated troponin ICD Codes: R74.8 - Abnormal levels of other serum enzymes Assessment and Plan 66 yo lady, paroxysmal afib, RVR, converted to NSR. 1.Paroxysmal afib. Normal TSH. [id number] score is 2, intermidiate risk of CVA. Low risk of bleeding, She may benefit for anticoagulation due to low risk of bleeding.\ Will start Eliquis 5 mg BID. Negative Caroline Nuc stress test 06/15/17 Echo ordered, not yet done. 2. Chest pain, with elevated troponin, moderate risk of CAD. Caroline nuclear stress test negative. SHe may benefit for LHC if her tachy recur. 3. Hypertension. 4. DM 5. GERD. Wing Meggan Moore MD June 16, 2017 13:25
--- NOTE | 2017-06-16 15:22 | ECHRPT ---
Indication: AFIB/AFLUTTER CONCLUSIONS The left ventricular systolic function is low normal with an estimated ejection fraction in the rang e of 50- 55%. Normal left ventricular size. Wall thickness is normal. The left atrial size is geji-[id number] dilated. Mitral annular calcification is present. Moderate mitral valve regurgitation. There is mild tricuspid valve regurgitation. The estimated pulmonary arterial pressure is 35 mmHg. BP: 150 / 84 HR: 56 Rhythm: Sinus MEASUREMENTS (Male / Female) Normal Values Technical Quality:Fair 2D ECHO LV Diastolic Diameter PLAX 4.8 cm 4.2 - 5.9 / 3.9 - 5.3 cm LV Systolic Diameter PLAX 3.5 cm IVS Diastolic Thickness 0.9 cm 0.6 - 1.0 / 0.6 - 0.9 cm LVPW Diastolic Thickness 0.9 cm 0.6 - 1.0 / 0.6 - 0.9 cm LV Relative Wall Thickness 0.4 RV Internal Dim ED PLAX 3.2 cm LA Systolic Diameter LX 4.8 cm 3.0 - 4.0 / 2.7 - 3.8 cm LA Volume Index 55.0 cm/m 16 - 28 cm/m M-MODE Aortic Root Diameter MM 2.1 cm LA Systolic Diameter MM 4.6 cm LA Ao Ratio MM 2.2 AV Cusp Separation MM 1.5 cm DOPPLER AV Peak Velocity 156.0 cm/s AV Peak Gradient 9.7 mmHg LVOT Peak Velocity 98.7 cm/s LVOT Peak Gradient 3.9 mmHg MV Area PHT 3.9 cm Mitral E Point Velocity 94.3 cm/s Mitral A Point Velocity 32.9 cm/s Mitral E to A Ratio 2.9 LV E' Lateral Velocity 11.4 cm/s Mitral E to LV E' Lateral Ratio 8.3 LV E' Septal Velocity 7.7 cm/s Mitral E to LV E' Septal Ratio 12.2 TR Peak Velocity 250.0 cm/s TR Peak Gradient 25.0 mmHg Right Atrial Pressure 10.0 mmHg Pulmonary Artery Systolic Pressu 35.0 mmHg Right Ventricular Systolic Press 35.0 mmHg FINDINGS LEFT VENTRICLE The left ventricular systolic function is low normal with an estimated ejection fraction in the rang e of 50- 55%. Normal left ventricular size. Wall thickness is normal. RIGHT VENTRICLE Normal right ventricular size and systolic function. LEFT ATRIUM The left atrial size is [id number] dilated. RIGHT ATRIUM The right atrial size is normal. ATRIAL SEPTUM Normal atrial septal thickness without atrial level shunting by limited color doppler interrogation. AORTA The aortic root and proximal ascending aorta are normal in size on limited imaging. MITRAL VALVE Mitral annular calcification is present. Moderate mitral valve regurgitation. AORTIC VALVE Trileaflet aortic valve. No aortic valve stenosis or regurgitation. TRICUSPID VALVE Structurally normal tricuspid valve. There is mild tricuspid valve regurgitation. The estimated pulmonary arterial pressure is 35 mmHg. PULMONARY VALVE No pulmonary valve regurgitation or stenosis. VESSELS The inferior vena cava is normal in size. PERICARDIUM No pericardial effusion. Rojelio Arora MD (Electronically Signed) Final Date:16 Jun 2017 15:20
[2017-06-16] MEDS ORDERED: CELE10TA PO (16:48)
[2017-06-16] MEDS ORDERED: APIX5TAB PO (16:49)
[2017-06-16] MEDS ORDERED: METO25TA3 PO ×2 (16:49)
--- NOTE | 2017-06-16 16:51 | HHI.DCPOC ---
Discharge Care Plan Diagnosis: (1) Atrial fibrillation with RVR (2) Elevated troponin (3) Hypertension (4) Diabetes mellitus Goals to Promote Your Health * To prevent worsening of your condition and complications * To maintain your health at the optimal level Directions to Meet Your Goals Take your medications as prescribed Follow your dietary instruction Follow activity as directed Keep your appointments as scheduled Take your immunizations and boosters as scheduled If your symptoms worsen call your PCP, if no PCP go to Urgent Care Center or Emergency Room Smoking is Dangerous to Your Health. Avoid second hand smoke Call the 24-hour hour crisis hotline for domestic abuse at Irene Kline June 16, 2017 16:51
[2017-06-16] MEDS ORDERED: APIXABAN 5 MG TABLET PO ONE (17:00)
[2017-06-16] MEDS ORDERED: METOPROLOL TARTRATE 25 MG TAB PO SCH (21:00)
[2017-06-17] MEDS ORDERED: METOPROLOL TARTRATE 25 MG TAB PO SCH (09:00)
== END 2017-06-16 17:29 | disposition home or self-care (01) | DRG 310 ==
LOC: NEPC 04:56 → NEDA 06:25 → HIMW 08:20 → HCIS 06-15 18:17
PROVIDERS: ADMIT Anesthesiology; ATTEND Anesthesiology
DX: I48.0 Paroxysmal atrial fibrillation (principal); I10 Essential (primary) hypertension; E87.6 Hypokalemia; F32.9 Major depressive disorder, single episode, unspecified; F41.9 Anxiety disorder, unspecified; E11.9 Type 2 diabetes mellitus without complications; K21.9 Gastro-esophageal reflux disease without esophagitis; E78.5 Hyperlipidemia, unspecified; Z87.891 Personal history of nicotine dependence
CPT/HCPCS: 71045; 78452; 80053; 81001; 82550; 82552; 82948; 83735; 84100; 84132; 84436; 84443; 84484; 85025; 85610; 85730; 87641; 93005; 93017; 93306; 96374; 96376; A9502; J1160; J1644; J2785; J7040

== ENCOUNTER 2017-10-21 20:35 | Inpatient (IN) ==
[2017-10-21] MEDS ORDERED: dilTIAZem Inj 125 MG in Sodium Chlor 0.9% Inj 100 ML IV.CONT PRN (20:58)
--- NOTE | 2017-10-21 21:20 | XR ---
EXAM DATE: 10/21/2017 9:12 PM EDT AGE/SEX: 67 years / Female INDICATIONS: Palpitations CLINICAL DATA: This is the patient's initial encounter. Patient reports that signs and symptoms have been present for 1 day and indicates a pain score of 5/10. MEDICAL/SURGICAL HISTORY: . Hypertension. . . . Spinal cord stimulator COMPARISON: [facility] [place]ST SINGLE AP, 06/14/2017. . FINDINGS: A single AP view of the chest demonstrates the lungs to be symmetrically aerated without evidence of mass, infiltrate or effusion. The cardiomediastinal contours are unremarkable. Osseous structures a re intact. There are multiple overlying electrocardiogram leads. CONCLUSION: No acute cardiopulmonary disease. Electronically signed by: Black Bo MD 10/21/2017 9:18 PM EDT
[2017-10-21 21:54] LABS: Baso # (Auto) 0.1 th/mm3 (0.0-0.2); Baso % (Auto) 0.8 % (0.0-2.0); Eos # (Auto) 0.2 th/mm3 (0.0-0.4); Eos % (Auto) 2.7 % (0.0-4.0); Hematocrit 41.2 % (35.0-46.0); Hemoglobin 13.6 gm/dL (11.6-15.3); Lymph # (Auto) 2.8 th/mm3 (1.0-4.8); Lymph % (Auto) 37.1 % (9.0-44.0); Mean Corpuscular HGB Conc 32.9 % (32.0-36.0); Mean Corpuscular Hemoglobin 29.5 pg (27.0-34.0); Mean Corpuscular Volume 89.7 fL (80.0-100.0); Mean Platelet Volume 10.2 fL (7.0-11.0); Mono # (Auto) 0.6 th/mm3 (0.0-0.9); Mono % (Auto) 7.6 % (0.0-8.0); Neut # (Auto) 3.9 th/mm3 (1.8-7.7); Neut % (Auto) 51.8 % (16.0-70.0); Platelet Count 257 th/mm3 (150-450); Red Blood Count 4.59 mil/mm3 (4.00-5.30); Red Cell Distribution Width 13.3 % (11.6-17.2); White Blood Count 7.6 th/mm3 (4.0-11.0)
[2017-10-21 22:08] LABS: Activated Partial Thrombo Time 29.9 sec (24.3-30.1)
[2017-10-21 22:12] LABS: Anion Gap 7 meq/L (5-15); Aspartate Aminotransferase 15 U/L (15-37); Blood Urea Nitrogen 12 mg/dL (7-18); Calcium 9.3 mg/dL (8.5-10.1); Chloride 105 meq/L (98-107); Glomerular Filtration Rate 58 mL/min (>89); Glucose,Random 92 mg/dL (74-106); Potassium 3.5 meq/L (3.5-5.1); Sodium 140 meq/L (136-145)
[2017-10-21 22:14] LABS: Alanine Aminotransferase 27 U/L (10-53)
[2017-10-21 22:20] LABS: Alkaline Phosphatase 69 U/L (45-117); Creatine Kinase 180 U/L (26-192); Total Protein 7.7 g/dL (6.4-8.2)
--- NOTE | 2017-10-21 22:35 | ED ---
HPI General Chief Complaint: Arrhythmia/Palpitations Stated Complaint: rapid pulse Time Seen by Provider: 10/21/17 20:54 History of Present Illness HPI narrative: Patient is a 67-year-old female presents the emergency department with chief complaint of palpitations and racing heart. She has a history of paroxysmal atrial fibrillation. She currently takes diltiazem at home. Patient noted racing heart just before arrival. She came to the emergency department right away. She denies chest pain or shortness of breath and her current symptoms are similar to her past episodes however they are sustained. Related Data Home Medications Medication Instructions Recorded Confirmed apixaban [Eliquis] 5 mg PO BID 10/21/17 10/21/17 diltiazem HCl [Cardizem CD] 120 mg PO DAILY 10/21/17 10/21/17 losartan 100 mg PO DAILY 10/21/17 10/21/17 Allergies Allergy/AdvReac Type Severity Reaction Status Date / Time MRI PRECAUTION Allergy Unknown Uncoded 04/05/17 14:38 Review of Systems ROS: all other systems reviewed are negative Constitutional Denies fever(s) and Denies weakness Cardiovascular Denies chest pain, Reports rapid heart rate, Denies pedal edema and Denies leg edema Respiratory Denies chest congestion, Denies dyspnea and Denies dyspnea on exertion Gastrointestinal Denies nausea and Denies vomiting Musculoskeletal Denies back pain and Denies neck pain Neurologic Denies vertigo, Denies sensory deficit, Denies paresthesias and Denies weakness Psychiatric Denies anxiety [facility] Medical History Medical History Spinal cord stimulator status (Acute) Hypertension (Acute) Dizziness (Acute) Afib (Acute) History of hysterectomy (Acute) Surgical History Surgical History History of back surgery (Acute) History of tubal ligation (Acute) Hx of appendectomy (Acute) Hx of cholecystectomy (Acute) Social History Social History Substance History: No History of Abuse Second Hand Smoke Exposure: Yes Smoking Status: Former smoker Tobacco Type: Cigarettes How Often Do You Have a Drink Containing Alcohol: Monthly or less Recent Travel in [facility] within the Last 8 Weeks: No Recent Out of Country Travel within the Last 8 Weeks: No Immunization History Tetanus Immunization: Unsure Hx Influenza Vaccine This Season: Yes Exam Narrative Exam Narrative: GENERAL: 67-year-old female in mild distress secondary to racing heart SKIN: Focused skin assessment warm/dry. HEAD: Atraumatic. Normocephalic. EYES: Pupils equal and round. No scleral icterus. No injection or drainage. ENT: No nasal bleeding or discharge. Mucous membranes pink and moist. NECK: Trachea midline. No JVD. CARDIOVASCULAR: Regular rate and rhythm. No murmur appreciated. RESPIRATORY: No accessory muscle use. Clear to auscultation. Breath sounds equal bilaterally. GASTROINTESTINAL: Abdomen soft, non-tender, nondistended. Hepatic and splenic margins not palpable. MUSCULOSKELETAL: No obvious deformities. No clubbing. No cyanosis. No edema. NEUROLOGICAL: Awake and alert. No obvious cranial nerve deficits. Motor grossly within normal limits. Normal speech. PSYCHIATRIC: Anxious. Course Initial Documented Vital Signs Pulse Rate 162 H 10/21/17 20:45 Respiratory Rate 29 H 10/21/17 20:45 Blood Pressure 206/165 H 10/21/17 20:45 Pulse Oximetry 99 10/21/17 20:45 Last Documented Vital Signs Pulse Rate 132 H 10/21/17 21:08 Respiratory Rate 19 10/21/17 21:08 Blood Pressure 132/95 H 10/21/17 21:08 Pulse Oximetry 98 10/21/17 21:08 Medical Decision Making [facility] Narrative Medical decision making narrative: Patient was seen and evaluated in the emergency department. She was given Cardizem bolus and started on a trip her heart rate improved to and has been bouncing between 85 and 115. Her troponin was negative and other laboratory studies are unremarkable as well. She will be admitted for further observation and treatment Medical Screen Exam Complete: Yes Emergency Medical Condition: Yes Lab Data Result diagrams: 10/21/17 21:00 10/21/17 21:00 Lab Results 10/21/17 10/21/17 10/21/17 Range/Units 21:00 21:00 21:00 WBC 7.6 (4.0-11.0) th/mm3 RBC 4.59 (4.00-5.30) mil/mm3 Hgb 13.6 (11.6-15.3) gm/dL Hct 41.2 (35.0-46.0) % MCV 89.7 (80.0-100.0) fL MCH 29.5 (27.0-34.0) pg MCHC 32.9 (32.0-36.0) % RDW 13.3 (11.6-17.2) % Plt Count 257 (150-450) th/mm3 MPV 10.2 (7.0-11.0) fL Neut % (Auto) 51.8 (16.0-70.0) % Lymph % (Auto) 37.1 (9.0-44.0) % Lee % (Auto) 7.6 (0.0-8.0) % Eos % (Auto) 2.7 (0.0-4.0) % Baso % (Auto) 0.8 (0.0-2.0) % Neut # (Auto) 3.9 (1.8-7.7) th/mm3 Lymph # (Auto) 2.8 (1.0-4.8) th/mm3 Lee # (Auto) 0.6 (0.0-0.9) th/mm3 Eos # (Auto) 0.2 (0.0-0.4) th/mm3 Baso # (Auto) 0.1 (0.0-0.2) th/mm3 WBC Differential . Differential Comment Auto diff final PT 10.0 (9.8-11.6) sec INR 1.0 Ratio APTT 29.9 (24.3-30.1) sec Sodium 140 (136-145) meq/L Potassium 3.5 (3.5-5.1) meq/L Chloride 105 (98-107) meq/L Carbon Dioxide 28.0 (21.0-32.0) meq/L Anion Gap 7 (5-15) meq/L BUN 12 (7-18) mg/dL Creatinine 0.97 (0.50-1.00) mg/dL Estimated GFR 58 L (>89) mL/min Random Glucose 92 (74-106) mg/dL Calcium 9.3 (8.5-10.1) mg/dL Total Bilirubin 0.2 (0.2-1.0) mg/dL AST 15 (15-37) U/L ALT 27 (10-53) U/L Alkaline Phosphatase 69 (45-117) U/L Total Creatine Kinase 180 (26-192) U/L Troponin I Less than 0.02 L (0.02-0.05) ng/mL Total Protein 7.7 (6.4-8.2) g/dL Albumin 4.0 (3.4-5.0) g/dL 10/22/17 Range/Units 01:05 WBC (4.0-11.0) th/mm3 RBC (4.00-5.30) mil/mm3 Hgb (11.6-15.3) gm/dL Hct (35.0-46.0) % MCV (80.0-100.0) fL MCH (27.0-34.0) pg MCHC (32.0-36.0) % RDW (11.6-17.2) % Plt Count (150-450) th/mm3 MPV (7.0-11.0) fL Neut % (Auto) (16.0-70.0) % Lymph % (Auto) (9.0-44.0) % Lee % (Auto) (0.0-8.0) % Eos % (Auto) (0.0-4.0) % Baso % (Auto) (0.0-2.0) % Neut # (Auto) (1.8-7.7) th/mm3 Lymph # (Auto) (1.0-4.8) th/mm3 Lee # (Auto) (0.0-0.9) th/mm3 Eos # (Auto) (0.0-0.4) th/mm3 Baso # (Auto) (0.0-0.2) th/mm3 WBC Differential Differential Comment PT (9.8-11.6) sec INR Ratio APTT (24.3-30.1) sec Sodium (136-145) meq/L Potassium (3.5-5.1) meq/L Chloride (98-107) meq/L Carbon Dioxide (21.0-32.0) meq/L Anion Gap (5-15) meq/L BUN (7-18) mg/dL Creatinine (0.50-1.00) mg/dL Estimated GFR (>89) mL/min Random Glucose (74-106) mg/dL Calcium (8.5-10.1) mg/dL Total Bilirubin (0.2-1.0) mg/dL AST (15-37) U/L ALT (10-53) U/L Alkaline Phosphatase (45-117) U/L Total Creatine Kinase (26-192) U/L Troponin I Less than 0.02 L (0.02-0.05) ng/mL Total Protein (6.4-8.2) g/dL Albumin (3.4-5.0) g/dL Imaging Data Radiologist's impression: Chest X-Ray 10/21/17 21:00 CONCLUSION: No acute cardiopulmonary disease. Discharge Plan Discharge Disposition Patient Disposition: 30 Still Patient Discharge Condition Condition: Stable Discharge Details Diagnosis: Atrial fibrillation with RVR Physicians Team ED Provider: Jennifer Daigle Primary Care Provider: UNKNOWN, Attending Provider: Miroslava Maldonado Other Providers: Felicia Duarte ; Humberto Ledezma Discharge Interventions Interventions: ED Discharge Assessment Last Done: 10/22/17 00:34 Status ED Status: Left Department Discharge Information Discharge Date/Time: 10/22/17 02:39
[2017-10-21] MEDS ORDERED: Bisacodyl 10 MG Supp RECTAL PRN (22:50)
--- NOTE | 2017-10-21 22:51 | P.HPIM ---
History of Present Illness Primary Care Physician: UNKNOWN History of Present Illness: This is a 67-year-old female with a PMH of A. fib, HTN and h/o Spinal Cord Stimulator who presented to the ER w/ complaints of palpitations and elevated HR. Pt is a [employer] employee, states her neighbor is an RN here and asked her to check pt's pulse because of c/o palpitations, noted to have HR 140-150's. Reports associated chest pain at that time, now resolved. Follows w/ Dr. Joseph, states medications recently changed approx 2wks ago from Metoprolol to Cardizem and Losartan, has been having ongoing dizziness and "feeling out of sorts" since then. Seen in ER on 10/09/17 for c/o dizziness, CT Head negative, labs unremarkable except for mild renal insufficiency, discharged w/ plans for outpatient follow up. On arrival, BP 206/165, HR 162, O2 sat 99% on RA. Chemistry unremarkable. Troponin negative. INR 1.0. CBC unremarkable. CXR with no acute findings. S/p Cardizem IV w/ HR 130's, currently on Cardizem gtt. - Diagnosis (1) Atrial fibrillation with RVR (2) HTN (hypertension) Review of Systems PAST FAMILY HISTORY: Reviewed. No h/o DM or CAD PMFSH - History History Provided By: Patient - Medical History Medical History: Medical History (Last Updated 10/21/17 @ 21:10 by Jose Li) Spinal cord stimulator status (Acute) Hypertension (Acute) Dizziness (Acute) Afib History of hysterectomy - Surgical History Surgical History: Surgical History (Last Updated 10/21/17 @ 21:10 by Jose Li) History of back surgery History of tubal ligation Hx of appendectomy Hx of cholecystectomy - Tobacco History Second Hand Smoke Exposure: No Tobacco Use In Past 30 Days: No Smoking Status: Former smoker Tobacco Type: Cigarettes - Alcohol History How Often Do You Have a Drink Containing Alcohol: Monthly or less - Substance Use History Substance History: No History of Abuse - Travel History Recent Travel Out of the Country Within the Last 8 Weeks: No - Immunization History Tetanus Immunization: Unsure Hx Influenza Vaccine This Season: Yes Medications and Allergies Active Medications: Active Medications Diltiazem HCl 125 mg/ Sodium (Chloride) 125 mls @ 5 mls/hr IV.CONT TITRATE PRN ; Protocol PRN Reason: Per Protocol Last Admin: 10/21/17 21:52 Dose: 5 mg/hr, 5 mls/hr Allergies Allergy/AdvReac Type Severity Reaction Status Date / Time MRI PRECAUTION Allergy Unknown Uncoded 04/05/17 14:38 Home Medications Medication Instructions Recorded Confirmed Type apixaban [Eliquis] 5 mg PO BID 10/21/17 10/21/17 History diltiazem HCl [Cardizem CD] 120 mg PO DAILY 10/21/17 10/21/17 History losartan 100 mg PO DAILY 10/21/17 10/21/17 History Exam Vital signs: Vital Signs 10/21/17 20:45 10/21/17 21:08 Pulse Rate 162 H 132 H Respiratory Rate 29 H 19 Blood Pressure 206/165 H 132/95 H Pulse Oximetry 99 98 Intake & Output 10/21/17 10/21/17 10/22/17 06:59 18:59 06:59 Weight 72.575 kg Narrative: PE: GENERAL: Very pleasant middle-aged white female in no acute distress. at bedside SKIN: Focused skin assessment warm and dry. HEENT: PERRLA, EOMI. No scleral icterus or conjunctival pallor. No lid lag or facial droop. CARDIOVASCULAR: Irregularly irregular, in Afib, HR now 80-90's. No obvious murmurs to auscultation. No chest tenderness to palpation. RESPIRATORY: No obvious rhonchi or wheezing. Clear to auscultation. Breath sounds equal bilaterally. GASTROINTESTINAL: Abdomen soft, non-tender, nondistended. BS normal. MUSCULOSKELETAL: Extremities without clubbing, cyanosis, or edema. No obvious deformities. NEUROLOGICAL: Awake, alert and oriented x4. No focal neurologic deficits. Moving both upper and lower extremities spontaneously. PSYCHIATRIC: Appropriate mood and affect. Insight and judgment normal. Results - Labs CBC & Chem 7: 10/21/17 21:00 10/21/17 21:00 Labs: Short CBC 10/21/17 Range/Units 21:00 WBC 7.6 (4.0-11.0) th/mm3 Hgb 13.6 (11.6-15.3) gm/dL Hct 41.2 (35.0-46.0) % Plt Count 257 (150-450) th/mm3 BMP 10/21/17 21:00 Sodium 140 Potassium 3.5 Chloride 105 Carbon Dioxide 28.0 BUN 12 Creatinine 0.97 Calcium 9.3 Cardiac Enzymes 10/21/17 Range/Units 21:00 Total Creatine Kinase 180 (26-192) U/L Troponin I Less than 0.02 L (0.02-0.05) ng/mL Liver Function 10/21/17 Range/Units 21:00 Total Bilirubin 0.2 (0.2-1.0) mg/dL AST 15 (15-37) U/L ALT 27 (10-53) U/L Alkaline Phosphatase 69 (45-117) U/L Albumin 4.0 (3.4-5.0) g/dL - Imaging Impressions Chest X-Ray 10/21/17 21:00 CONCLUSION: No acute cardiopulmonary disease. Caprini VTE Risk Assessment Caprini VTE Risk Assessment: No/Low Risk (score <= 1) Caprini Risk Assessment Model: Point Value = 1 Point Value = 2 Point Value = 3 Point Value = 5 Age 41-60 Minor surgery BMI > 25 kg/m2 Swollen legs Varicose veins or History of unexplained or recurrent spontaneous Oral contraceptives or hormone replacement Sepsis (< 1 month) Serious lung disease, including pneumonia (< 1 month) Abnormal pulmonary function Acute myocardial infarction Congestive heart failure (< 1 month) History of inflammatory bowel disease Medical patient at bed rest Age 61-74 Arthroscopic surgery Major open surgery (> 45 min) Laparoscopic surgery (> 45 min) Malignancy Confined to bed (> 72 hours) Immobilizing plaster cast Central venous access Age >= 75 History of VTE Family history of VTE Factor V Leiden Prothrombin [id number] Lupus anticoagulant Anticardiolipin antibodies Elevated serum homocysteine Heparin-induced thrombocytopenia Other congenital or acquired thrombophilia Stroke (< 1 month) Elective arthroplasty Hip, pelvis, or leg fracture Acute spinal cord injury (< 1 month) Prophylaxis Regimen: Total Risk Factor Score Risk Level Prophylaxis Regimen 0-1 Low Early ambulation 2 Moderate Order ONE of the following: *Sequential Compression Device (SCD) *Heparin 5000 units SQ BID 3-4 Higher Order ONE of the following medications: *Heparin 5000 units SQ TID *Enoxaparin/Lovenox 40 mg SQ daily (WT < 150 kg, CrCl > 30 mL/min) *Enoxaparin/Lovenox 30 mg SQ daily (WT < 150 kg, CrCl > 10-29 mL/min) *Enoxaparin/Lovenox 30 mg SQ BID (WT < 150 kg, CrCl > 30 mL/min) AND/OR *Sequential Compression Device (SCD) 5 or more Highest Order ONE of the following medications: *Heparin 5000 units SQ TID (Preferred with Epidurals) *Enoxaparin/Lovenox 40 mg SQ daily (WT < 150 kg, CrCl > 30 mL/min) *Enoxaparin/Lovenox 30 mg SQ daily (WT < 150 kg, CrCl > 10-29 mL/min) *Enoxaparin/Lovenox 30 mg SQ BID (WT < 150 kg, CrCl > 30 mL/min) AND *Sequential Compression Device (SCD) Assessment and Plan - Assessment (1) Atrial fibrillation with RVR Code(s): I48.91 - Unspecified atrial fibrillation Status: Acute (2) HTN (hypertension) Code(s): I10 - Essential (primary) hypertension Status: Acute - Plan A/P: 1. A-fib w/ RVR: h/o A-fib, follows w/ Dr. Joseph, recent changes to medications 2wks ago w/ ongoing dizziness since then, now w/ palpitations. HR 160's on arrival, s/p Cardizem IV w/ HR 130's, currently on Cardizem gtt. Admit to [facility], continue Cardizem gtt, check serial cardiac enzymes to eval for underlying ischemia. Echo 06/16/17 w/ EF 50-55%, moderate MR. Consult Dr. Joseph for further eval/intervention. 2. HTN: Uncontrolled. BP 206/165 on arrival, likely compounded by rapid Afib and c/o chest pain, will monitor BP closely, antihypertensives as needed. 3. DVT Prophylaxis: SCD/Teds 4. Social work for d/c planning as needed 5. Case discussed w/ ER physician at length, labs/records/imaging reviewed by me.
[2017-10-22] MEDS: Acetaminophen 325 MG Tablet PO PRN ×4 (00:26→20:41)
[2017-10-22] MEDS: Sod Chloride 0.9% Inj 1,000 ML IV.CONT SCH ×4 (00:26→21:00)
[2017-10-22] MEDS: Senna/Docusate Sodium 8.6/50 MG Tablet PO SCH ×3 (07:22→20:33)
[2017-10-22] MEDS ORDERED: Metoprolol Tartrate 25 MG Tablet PO SCH (08:45)
[2017-10-22 09:06] LABS: Baso # (Auto) 0.1 th/mm3 (0.0-0.2); Baso % (Auto) 1.4 % (0.0-2.0); Eos # (Auto) 0.1 th/mm3 (0.0-0.4); Eos % (Auto) 3.1 % (0.0-4.0); Hematocrit 37.9 % (35.0-46.0); Hemoglobin 12.5 gm/dL (11.6-15.3); Lymph # (Auto) 1.4 th/mm3 (1.0-4.8); Lymph % (Auto) 31.7 % (9.0-44.0); Mean Corpuscular HGB Conc 32.9 % (32.0-36.0); Mean Corpuscular Hemoglobin 29.7 pg (27.0-34.0); Mean Corpuscular Volume 90.3 fL (80.0-100.0); Mean Platelet Volume 9.6 fL (7.0-11.0); Mono # (Auto) 0.3 th/mm3 (0.0-0.9); Mono % (Auto) 6.9 % (0.0-8.0); Neut # (Auto) 2.5 th/mm3 (1.8-7.7); Neut % (Auto) 56.9 % (16.0-70.0); Platelet Count 234 th/mm3 (150-450); Red Cell Distribution Width 13.5 % (11.6-17.2); White Blood Count 4.4 th/mm3 (4.0-11.0)
[2017-10-22 09:27] LABS: Alanine Aminotransferase 22 U/L (10-53); Albumin 3.3 g/dL (3.4-5.0); Anion Gap 8 meq/L (5-15); Aspartate Aminotransferase 11 U/L (15-37); Blood Urea Nitrogen 12 mg/dL (7-18); Calcium 8.3 mg/dL (8.5-10.1); Chloride 108 meq/L (98-107); Glomerular Filtration Rate 63 mL/min (>89); Glucose,Random 165 mg/dL (74-106); Potassium 3.8 meq/L (3.5-5.1); Sodium 142 meq/L (136-145)
[2017-10-22] MEDS ORDERED: Naproxen 375 MG Tablet PO ONE (09:30)
[2017-10-22 09:32] LABS: Alkaline Phosphatase 60 U/L (45-117); Total Protein 6.6 g/dL (6.4-8.2)
--- NOTE | 2017-10-22 12:53 | MB ---
cc: LedezmaHumberto mauro Estela LUCAS DATE: 10/22/2017 REASON FOR CONSULTATION: Atrial fibrillation with rapid ventricular response. HISTORY OF PRESENT ILLNESS: The patient is a pleasant 66-year-old female who sees my partner, Dr. Joseph, in the office, and presented to [facility] due to palpitations and elevated heart rate. Apparently, she is an employee here at [employer] and had been noticing that while walking around, she was feeling somewhat lightheaded. Her blood pressure was checked and it was relatively normal. Then, at home, her neighbor who is a nurse, she asked her to check her pulse because of palpitations and it was noted to be 140-150 beats per minute. She complained of chest pain at that time, but she felt more that it was feeling the actual palpitations. Because of this, she was sent into the emergency room. She previously was brought into the emergency room on 10/09/2017 due to dizziness, and at that time she was discharged home to followup with Dr. Joseph. Apparently at that time, her metoprolol was changed to Cardizem and losartan to try to control her blood pressure more. Since being changed to Cardizem and losartan, she has noted a significant amount of palpitations as well as prolonged episodes of atrial fibrillation and still has been dizzy. Overnight, she had been placed on a Cardizem drip and after being given her medications this morning and her heart rate was controlled, her Cardizem drip was shut off. She is currently hemodynamically stable without chest pain or shortness of breath. PAST MEDICAL HISTORY: 1. Atrial fibrillation. 2. Hypertension. 3. Dizziness. PAST SURGICAL HISTORY: 1. Spinal cord stimulator placed. 2. Back surgery. 3. Tubal ligation. 4. Hysterectomy. 5. Appendectomy. 6. Cholecystectomy. ALLERGIES: NO KNOWN DRUG ALLERGIES. MEDICATIONS: 1. Losartan 100 mg daily. 2. Apixaban 5 mg b.i.d. 3. Cardizem CD 120 mg daily. FAMILY HISTORY: Denies premature coronary artery disease or sudden cardiac within the family. SOCIAL HISTORY: The patient is a previous cigarette smoker. She denies alcohol or drug abuse. REVIEW OF SYSTEMS: Fourteen systems were reviewed including osteopathic. Pertinent positives and negatives as above. Otherwise, negative. PHYSICAL EXAMINATION: VITAL SIGNS: Temperature 98.3, heart rate 59, blood pressure 128/60, respirations 17, pulse oximetry 94% on room air. GENERAL: The patient appears well, in no acute distress, alert, awake and oriented x3. HEENT: Extraocular muscles intact. Mucous membranes moist. NECK: Supple. No JVD at 45 degrees with no carotid bruits heard bilaterally. Carotid upstroke is brisk in nature. HEART: Regular rate and rhythm. Positive first and second heart sounds without any murmurs, gallops or rubs. LUNGS: Clear to auscultation bilaterally. No wheezes, rales or rhonchi. ABDOMEN: Soft, nontender, nondistended. No organomegaly noted. EXTREMITIES: Show no clubbing, cyanosis or edema. Femoral and distal pulses are intact bilaterally. NEUROLOGIC: No focal deficits. SKIN: Warm, dry and intact. OSTEOPATHIC: No kyphoscoliosis, lordosis or paraspinal tender points. LABORATORY DATA: Hemoglobin 12.5, hematocrit 37.9, platelets 234. Potassium 3.8, BUN 12, creatinine 0.9. Troponin negative x3. Electrocardiogram (10/21/2017 at 2056): Atrial fibrillation with rapid ventricular response, ST depressions, possibly due to rate versus ischemia. ASSESSMENT: 1. Atrial fibrillation with rapid ventricular response. 2. Hypertension with accelerated hypertension on arrival (blood pressure 206/165). 3. Remote tobacco abuse. 4. Dizziness. RECOMMENDATIONS: 1. The patient presented with atrial fibrillation with rapid ventricular response. Ultimately, she felt that her heart rate was much better controlled on the metoprolol tartrate, and so we will plan on transitioning her back to that. 2. Ultimately, she will also need better blood pressure control, which she most likely will not get with the metoprolol, although may be better with the combination of metoprolol and Losartan. Since relieving the stress of atrial fibrillation with rapid ventricular response, her blood pressure has been much better. For now will see how she does on Metoprolol with Losartan, if needed will add Amlodipine. 3. Whenever she is in sinus rhythm, her heart rate appears to be in the mid to upper 50s. If she continues to have somewhat of a tachybrady syndrome, she may need consideration of an atrial fibrillation ablation in the near future with Dr. Fleming, but would attempt to treat this as best as we can with medications first. 4. We will plan on watching her 24 hours and if stable, plan on discharge home tomorrow for followup with Dr. Joseph. Thank you for allowing me to see the patient. If there are any questions, please do not hesitate to call. DO LEROY Perez/[place] , 12:11 PM , 12:24 PM [place]
[2017-10-22] MEDS: Metoprolol Tartrate 25 MG Tablet PO SCH ×2 (13:55→20:33)
--- NOTE | 2017-10-22 14:34 | P.PN ---
Subjective Interval history: RN reports pt c/o headache - pt admits that's photophobic. has hx of ocular migraine. denies palpitations today Physical Exam Vital signs: Vital Signs 10/21/17 20:45 10/21/17 21:08 10/22/17 02:00 Temperature Pulse Rate 162 H 132 H 86 Respiratory Rate 29 H 19 Blood Pressure 206/165 H 132/95 H Pulse Oximetry 99 98 10/22/17 03:00 10/22/17 04:00 10/22/17 05:00 Temperature 97.8 F Pulse Rate 80 70 61 Respiratory Rate 18 Blood Pressure 127/60 Pulse Oximetry 97 10/22/17 06:00 10/22/17 07:00 10/22/17 07:57 Temperature 98.3 F Pulse Rate 58 L 56 L 56 L Respiratory Rate 17 Blood Pressure 128/60 Pulse Oximetry 94 L 10/22/17 08:30 10/22/17 09:00 10/22/17 10:00 Temperature Pulse Rate 59 L 54 L Respiratory Rate 15 Blood Pressure Pulse Oximetry 10/22/17 11:00 10/22/17 12:00 10/22/17 13:00 Temperature 98.7 F Pulse Rate 58 L 53 L 57 L Respiratory Rate 16 Blood Pressure 114/57 L Pulse Oximetry 97 10/22/17 14:00 Temperature Pulse Rate 59 L Respiratory Rate Blood Pressure Pulse Oximetry Intake & Output 10/21/17 10/22/17 10/22/17 18:59 06:59 18:59 Intake Total 1240 / 1240 Output Total 300 / 300 Balance 940 / 940 Weight 73.5 kg Intake: IV 1000 / 1000 NS Inj 1,000 ML @ 100 mls/hr IV 1000 / 1000 .CONT .Q10H [facility] Rx#:[id number] Oral 240 / 240 Output: Urine 300 / 300 Other: Weight On Admission 74.5 kg Narrative: Heart sounds regular rate rhythm, no murmurs Clear lungs bilaterally, unlabored breathing PERRLA Results - Labs CBC & Chem 7: 10/22/17 08:46 10/22/17 08:46 Laboratory Results - last 24 hr 10/21/17 10/21/17 10/21/17 21:00 21:00 21:00 WBC 7.6 RBC 4.59 Hgb 13.6 Hct 41.2 MCV 89.7 MCH 29.5 MCHC 32.9 RDW 13.3 Plt Count 257 MPV 10.2 Neut % (Auto) 51.8 Lymph % (Auto) 37.1 [place] % (Auto) 7.6 Eos % (Auto) 2.7 Baso % (Auto) 0.8 Neut # (Auto) 3.9 Lymph # (Auto) 2.8 [place] # (Auto) 0.6 Eos # (Auto) 0.2 Baso # (Auto) 0.1 WBC Differential . Differential Comment Auto diff final PT 10.0 INR 1.0 APTT 29.9 Sodium 140 Potassium 3.5 Chloride 105 Carbon Dioxide 28.0 Anion Gap 7 BUN 12 Creatinine 0.97 Estimated GFR 58 L Random Glucose 92 Calcium 9.3 Prot Corrected Calcium Total Bilirubin 0.2 AST 15 ALT 27 Alkaline Phosphatase 69 Total Creatine Kinase 180 Troponin I Less than 0.02 L Total Protein 7.7 Albumin 4.0 10/22/17 10/22/17 10/22/17 01:05 08:46 08:46 WBC 4.4 RBC 4.20 Hgb 12.5 Hct 37.9 MCV 90.3 MCH 29.7 MCHC 32.9 RDW 13.5 Plt Count 234 MPV 9.6 Neut % (Auto) 56.9 Lymph % (Auto) 31.7 [place] % (Auto) 6.9 Eos % (Auto) 3.1 Baso % (Auto) 1.4 Neut # (Auto) 2.5 Lymph # (Auto) 1.4 [place] # (Auto) 0.3 Eos # (Auto) 0.1 Baso # (Auto) 0.1 WBC Differential . Differential Comment Auto diff final PT INR APTT Sodium Cancelled Cancelled Potassium Cancelled Cancelled Chloride Cancelled Cancelled Carbon Dioxide Cancelled Cancelled Anion Gap Cancelled Cancelled BUN Cancelled Cancelled Creatinine Cancelled Cancelled Estimated GFR Cancelled Cancelled Random Glucose Cancelled Cancelled Calcium Cancelled Cancelled Prot Corrected Calcium Cancelled Cancelled Total Bilirubin Cancelled Cancelled AST Cancelled Cancelled ALT Cancelled Cancelled Alkaline Phosphatase Cancelled Cancelled Total Creatine Kinase Troponin I Less than 0.02 L Total Protein Cancelled Cancelled Albumin Cancelled Cancelled 10/22/17 08:46 WBC RBC Hgb Hct MCV MCH MCHC RDW Plt Count MPV Neut % (Auto) Lymph % (Auto) [place] % (Auto) Eos % (Auto) Baso % (Auto) Neut # (Auto) Lymph # (Auto) [place] # (Auto) Eos # (Auto) Baso # (Auto) WBC Differential Differential Comment PT INR APTT Sodium 142 Potassium 3.8 Chloride 108 H Carbon Dioxide 26.0 Anion Gap 8 BUN 12 Creatinine 0.90 Estimated GFR 63 L Random Glucose 165 H Calcium 8.3 L D Prot Corrected Calcium Total Bilirubin 0.2 AST 11 L ALT 22 Alkaline Phosphatase 60 Total Creatine Kinase Troponin I Less than 0.02 L Total Protein 6.6 D Albumin 3.3 L D - Imaging Impressions Chest X-Ray 10/21/17 21:00 CONCLUSION: No acute cardiopulmonary disease. Assessment and Plan - Assessment (1) Atrial fibrillation with RVR Code(s): I48.91 - Unspecified atrial fibrillation Status: Acute (2) HTN (hypertension) Code(s): I10 - Essential (primary) hypertension Status: Acute - Plan 67 y/o WF A-fib w/ RVR HTN -lopressor per cards -losartan, amlodipine -eliquis JERONIMO ? migraine -trial of naproxen
--- NOTE | 2017-10-22 18:38 | ECG ---
Date Performed: 10/21/2017 Time Performed: 20:56:58 PTAGE: 67 years EKG: ATRIAL FIBRILLATION WITH RAPID VENTRICULAR RESPONSE Diffuse ST depression with possible isc hemia. When compared to previous tracing, the atrial fibrillation is new And the ST depression is muc h more prominant. ABNORMAL ECG PREVIOUS TRACING : 10/09/2017 10.54.40 DOCTOR: Gopi Jimenez Interpretating Date/Time 10/22/2017 18:37:06
[2017-10-22] MEDS ORDERED: Melatonin 5 MG Tablet PO PRN (21:00)
[2017-10-23] MEDS: Sod Chloride 0.9% Inj 1,000 ML IV.CONT SCH (05:00)
[2017-10-23] MEDS: Metoprolol Tartrate 25 MG Tablet PO SCH ×2 (06:17→08:44)
[2017-10-23] MEDS: Senna/Docusate Sodium 8.6/50 MG Tablet PO SCH (08:44)
--- NOTE | 2017-10-23 09:36 | P.PNIM ---
Subjective Interval history: Patient states no further palpitations. No complaint of chest pain or shortness of breath. Wants to go home today. She has no further headaches. She also requests something for anxiety intermittently she is open to SSRIs as I discussed with her benzodiazepines is not a good long-term solution. Physical Exam Vital signs: Vital Signs 10/22/17 10:00 10/22/17 11:00 10/22/17 12:00 Temperature 98.7 F Pulse Rate 54 L 58 L 53 L Respiratory Rate 16 Blood Pressure 114/57 L Pulse Oximetry 97 10/22/17 13:00 10/22/17 14:00 10/22/17 16:00 Temperature 98.4 F Pulse Rate 57 L 59 L 92 H Respiratory Rate 17 Blood Pressure 126/60 Pulse Oximetry 96 10/22/17 19:00 10/22/17 20:00 10/22/17 21:00 Temperature 98.4 F Pulse Rate 53 L 53 L 56 L Respiratory Rate 18 Blood Pressure 160/69 H Pulse Oximetry 96 10/22/17 22:00 10/22/17 23:00 10/22/17 23:45 Temperature 98.4 F Pulse Rate 56 L 54 L 58 L Respiratory Rate 16 Blood Pressure 122/58 L Pulse Oximetry 96 10/23/17 00:00 10/23/17 01:00 10/23/17 02:00 Temperature 98.4 F Pulse Rate 58 L 58 L 56 L Respiratory Rate 16 Blood Pressure 122/58 L Pulse Oximetry 96 10/23/17 03:00 10/23/17 04:00 10/23/17 05:00 Temperature 98 F Pulse Rate 55 L 54 L 52 L Respiratory Rate 16 Blood Pressure 134/63 Pulse Oximetry 96 10/23/17 06:00 10/23/17 07:00 10/23/17 08:00 Temperature 97.9 F Pulse Rate 57 L 56 L 77 Respiratory Rate 17 Blood Pressure 150/70 H Pulse Oximetry 96 10/23/17 09:00 Temperature Pulse Rate 69 Respiratory Rate Blood Pressure Pulse Oximetry Intake & Output 10/22/17 10/23/17 10/23/17 18:59 06:59 18:59 Intake Total 1000 / 1000 240 / 240 Balance 1000 / 1000 240 / 240 Weight 76 kg Intake: IV 1000 / 1000 NS Inj 1,000 ML @ 100 mls/hr IV 1000 / 1000 .CONT .Q10H [facility] Rx#:[id number] Oral 240 / 240 Other: # Voids 2 Narrative: GENERAL: This is a well-nourished, well-developed patient, in no apparent distress. CARDIOVASCULAR: Regular rate and rhythm without murmurs, gallops, or rubs. RESPIRATORY: Clear to auscultation. Breath sounds equal bilaterally. No wheezes , rales, or rhonchi. MUSCULOSKELETAL: Extremities without clubbing, cyanosis, or edema. NEURO: Alert & Oriented x4 to person, place, time, situation. Moves all ext x4 Results - Labs CBC & Chem 7: 10/22/17 08:46 10/22/17 08:46 Laboratory Results - last 24 hr 10/22/17 08:46 Total Bilirubin 0.2 Alkaline Phosphatase 60 Troponin I Less than 0.02 L Total Protein 6.6 D Assessment and Plan - Assessment (1) Atrial fibrillation with RVR Code(s): I48.91 - Unspecified atrial fibrillation Status: Acute (2) HTN (hypertension) Code(s): I10 - Essential (primary) hypertension Status: Acute - Plan 67 y/o WF admitted for A-fib w/ RVRnow rate controlled with Lopressor, continue with Eliquis and follow-up with cardiology. HTN, chronic essential, blood pressure adequately, resolved controlled -lopressor -losartan, JERONIMO, resolved ? migraine -trial of naproxen History of intermittent anxietytrial of Lexapro. Counseled the patient that benzodiazepine is not at good long-term option. Discharge patient to home Condition on discharge: Improved Heart healthy diet as tolerated Ad Bette activity Rx written: Metoprolol 25 mg p.o. twice daily Lexapro 10 mg p.o. daily follow-up with cardiology Dr. Joseph Follow-up with primary care physician
== END 2017-10-23 10:19 | disposition home or self-care (01) ==
LOC: NEPC 20:35 → NEDA 23:16 → HCPC 10-22 00:50
PROVIDERS: ADMIT Family Medicine; ATTEND Family Medicine